=== PATIENT | male | born 1955 | race African-American/Black ===

== ENCOUNTER 2018-06-03 17:12 | Observation (INO) | payer MEDICARE, BC ==
[2018-06-03 18:06] LABS: #Basophils 0.1 thou/uL (0.0-0.2); #Monocytes 1.4 thou/uL (0.11-0.59); #Neutrophils 7.5 thou/uL (1.40-6.50); %Basophils 0.6 % (0.0-1.0); %Eosinophils 0.4 % (0.0-10.0); %Lymphocytes 9.5 % (21.0-51.0); %Monocytes 14.2 % (0.0-10.0); %Neutrophils 75.3 % (42.0-75.0); Hemoglobin 13.3 g/dL (14.0-18.0); Mean Corpuscular HGB CONC 30.9 g/dL (32.0-36.0); Mean Corpuscular Hemoglobin 27.8 pg (27.0-31.0); Mean Corpuscular Volume 89.7 fL (78.0-98.0); Mean Platelet Volume 8.2 fL (7.4-10.4); Platelet Count 286 thou/uL (130-400)
--- NOTE | 2018-06-03 18:13 | RAD ---
PORTABLE CHEST: 06/03/18 HISTORY: Cough, shortness of breath. Lungs appear clear. Heart and mediastinum unremarkable. Vasculature normal. IMPRESSION: No acute findings. POS: [facility]
[2018-06-03 18:26] LABS: ALT (SGPT) 11 U/L (8-55); AST (SGOT) 16 U/L (5-34); Alkaline Phosphatase 80 U/L (40-150); Anion Gap 18 mmol/L (10-20); BUN (Urea Nitrogen) 43 mg/dL (8.4-25.7); Bilirubin, Total 0.2 mg/dL (0.2-1.2); Calc. Creatinine Clearance 0 mL/min (70-130); Calcium 8.7 mg/dL (7.8-10.44); Carbon Dioxide 20 mmol/L (23-31); Chloride 102 mmol/L (98-107); Estimated GFR-MDRD 21; Globulin 3.5 g/dL (2.4-3.5); Glucose 425 mg/dL (80-115); Potassium 4.2 mmol/L (3.5-5.1); Protein, Total 7.5 g/dL (5.8-8.1); Sodium 136 mmol/L (136-145)
[2018-06-03 18:42] LABS: Bilirubin Negative (Negative); Blood, Urine Small (Negative); Clarity CLEAR (Clear); Glucose, Urine (Dipstick) >=1000 mg/dL (Negative); Leukocyte Negative (Negative); Nitrite Negative (Negative); Protein, Urine (Dipstick) > or equal to 300 mg/dL (Neg-Trace); Urobilinogen 0.2 mg/dL (0.2-1.0); pH, Urine 6.5 (5.0-9.0)
[2018-06-03 18:45] LABS: Bacteria/HPF None Seen HPF (None Seen); Hyaline Casts/LPF 0-3 HYALINE CAST LPF (0-3 Hyaline); Pathc Cast-AUWi Flag 0.14 (0-2.49); Squamous Epithelial 0-3 HPF (0-3); WBC/HPF 0-3 HPF (0-3)
[2018-06-03] MEDS ORDERED: Acetaminophen 500 MG TAB ONE (19:13)
[2018-06-03] MEDS ORDERED: Albuterol Sulfate 2.5 mg/3 ml Neb ONE (19:21)
[2018-06-03 19:37] LABS: CKMB 1.2 ng/mL (0-6.6)
[2018-06-03] MEDS ORDERED: Insulin Regular 300 UNITS/3 ML VIAL ONE (20:46)
[2018-06-03] MEDS ORDERED: Acetaminophen 325 MG TAB ONE (22:23)
[2018-06-03] MEDS ORDERED: Oseltamivir 75 MG CAP PO SCH (22:30)
[2018-06-03 22:48] LABS: Troponin I 0.173 ng/mL (< 0.028)
[2018-06-04] MEDS ORDERED: Acetaminophen 325 MG TAB PO PRN ×2 (00:11→23:53)
[2018-06-04] MEDS ORDERED: Ondansetron ODT 4 MG TAB SL PRN (00:11)
[2018-06-04] MEDS ORDERED: Ondansetron PF 4 MG/2 ML Vial IVP PRN (00:11)
[2018-06-04 02:29] LABS: Troponin I 0.179 ng/mL (< 0.028)
[2018-06-04 04:29] VITALS: BMI 34.8
[2018-06-04] MEDS ORDERED: Dextrose 5% in Water 1,000 ML IV PRN (06:58)
[2018-06-04] MEDS ORDERED: Insulin Regular 300 UNITS/3 ML VIAL SC PRN (06:58)
[2018-06-04] MEDS ORDERED: Dextrose 50% Abboject 50 ML SYRINGE IVP PRN (06:58)
[2018-06-04] MEDS ORDERED: Senokot S 8.6-50 MG TAB PO PRN (07:27)
[2018-06-04] MEDS ORDERED: Bisacodyl 5 MG TAB PO PRN (07:27)
[2018-06-04] MEDS: Insulin Regular 300 UNITS/3 ML VIAL SC PRN ×3 (08:15→18:34)
[2018-06-04] MEDS: Insulin Glargine 15 UNITS in Pre-Filled Syringe 1 EACH SC SCH (08:41)
[2018-06-04] MEDS: Oseltamivir 6 MG/ML ORAL SUSP PO SCH (08:42)
[2018-06-04] MEDS: NIFEdipine XL 60 MG TAB PO SCH (08:43)
[2018-06-04] MEDS: Amlodipine 10 MG TAB PO SCH (08:43)
[2018-06-04] MEDS: Carvedilol 25 MG TAB PO SCH ×2 (08:44→22:40)
[2018-06-04] MEDS: Rosuvastatin 20 MG TAB PO SCH (08:54)
[2018-06-04] MEDS: Heparin 5,000 UNITS/ML VIAL SC SCH ×3 (08:54→22:39)
[2018-06-04] MEDS ORDERED: Insulin Glargine 15 UNITS in Pre-Filled Syringe 1 EACH SC SCH ×3 (09:00→21:00)
[2018-06-04] MEDS ORDERED: Oseltamivir 75 MG CAP PO SCH (09:00)
[2018-06-04] MEDS ORDERED: Calcitriol 0.25 MCG CAP PO SCH ×2 (09:00)
[2018-06-04] MEDS ORDERED: NIFEDIPINE 60 MG PO SCH (09:00)
[2018-06-04] MEDS: Ipratropium Bromide 2.5 ml Neb NEB SCH ×2 (13:34→19:35)
[2018-06-04] MEDS ORDERED: Benzonatate 100 MG CAP PO PRN (15:34)
--- NOTE | 2018-06-04 21:15 | HP ---
CHIEF COMPLAINT: Shortness of breath. HISTORY OF PRESENT ILLNESS: The patient is a very pleasant 63-year-old male with a history of type 2 diabetes, hyperlipidemia, hypertension, who presents to the hospital with complaints of shortness of breath. The patient stated that for the past few days he has been having shortness of breath and cough. The patient stated that his shortness of breath got worse today to the point that he was unable to talk without getting very short of breath. So his brought him into the ER for further evaluation. The patient denies any chills, however, did have some fevers. No nausea, vomiting, or diarrhea. He denies any chest tightness. In the ED, the patient was found to have influenza A, so he was admitted to the hospital for further evaluation. PAST MEDICAL HISTORY: 1. Diabetes. 2. Hypertension. 3. Hyperlipidemia. 4. He has a history of heart failure. PAST SURGICAL HISTORY: He had back surgeries x3 including laminectomy and LASIK eye surgery for cataract removal. ALLERGIES: HE HAS NO KNOWN DRUG ALLERGIES. MEDICATIONS: As of the following; 1. The patient takes carvedilol 25 mg b.i.d. 2. Quinapril 80 mg daily. 3. Tizanidine one p.o. at bedtime. 4. Insulin 60 units in the morning, 42 in the night. 5. Nifedipine 60 mg daily. 6. Rosuvastatin 20 mg daily. REVIEW OF SYSTEMS: All negative except for the ones mentioned above in HPI. PHYSICAL EXAMINATION: VITAL SIGNS: Temperature 99.9, pulse 76, respiratory rate 18, 96% on room air, blood pressure 127/65. GENERAL: He is awake, alert, and oriented x3. Does not appear in any distress. HEENT: Normocephalic, atraumatic. No lymphadenopathy. Pupils are equal and reactive to light. CV: S1 and S2 present. No murmurs, rubs, or gallops. ABDOMEN: Soft and nontender. Bowel sounds are present x2. RESPIRATORY: Mild expiratory wheezing. No rhonchi or crackles heard. EXTREMITIES: No edema. Pedal pulses are present x2. NEUROVASCULAR: No focal deficits noted. SKIN: No cuts, lesions, or bruises noted. LABORATORY RESULTS: As of the following; WBC of 10.0, hemoglobin of 13.3, hematocrit of 43.1, platelets of 286. Chemistries; sodium of 136, potassium of 4.2, BUN of 43, creatinine of 3.57. Sugar was 425. His troponins are 0.094, went up to 0.173. BNP was 383. The patient's chest x-ray did not indicate any acute abnormalities. ASSESSMENT AND PLAN: The patient is a very pleasant 63-year-old male who presents to the hospital with shortness of breath. 1. Shortness of breath, most likely secondary to influenza A, which is positive. We will start the patient on some neb treatments. Continue the Tamiflu based per renal dosing. At this point, I do not think the patient requires any antibiotics. We will just continue to monitor. He does not have any white count or any chest x-ray findings. I will also go ahead and order an echocardiogram. His last stress test indicated a low EF. This was done in 2014. He had an EF of about 45%. The patient did state that he has a stress test coming up as an outpatient on the June 18. 2. Chronic kidney disease. The patient's creatinine has worsened since 2014. We will start on some gentle hydration and continue to monitor. 3. Mild elevated troponin. This could be a little bit of demand ischemia. The patient currently has no chest pain. We will continue to monitor. 4. Diabetes. We will try to control his sugars. 5. Deep venous thrombosis prophylaxis. We will put the patient on subcu heparin. Job ID: [id number]
[2018-06-05 05:50] LABS: Anion Gap 15 mmol/L (10-20); BUN (Urea Nitrogen) 49 mg/dL (8.4-25.7); Calc. Creatinine Clearance 28 mL/min (70-130); Calcium 8.3 mg/dL (7.8-10.44); Carbon Dioxide 22 mmol/L (23-31); Chloride 103 mmol/L (98-107); Estimated GFR-MDRD 19; Glucose 198 mg/dL (80-115); Potassium 3.6 mmol/L (3.5-5.1); Sodium 136 mmol/L (136-145)
[2018-06-05 06:07] LABS: Band 4 % (5-11); Eosinophils 4 % (0-10); Hemoglobin 11.6 g/dL (14.0-18.0); Lymphocytes 20 % (21-51); MDiff Complete? YES; Mean Corpuscular HGB CONC 31.5 g/dL (32.0-36.0); Mean Corpuscular Hemoglobin 28.1 pg (27.0-31.0); Mean Corpuscular Volume 89.2 fL (78.0-98.0); Mean Platelet Volume 8.5 fL (7.4-10.4); Monocytes 20 % (0-10); Neutrophil 52 % (42-75); Platelet Count 244 thou/uL (130-400); RBC Distribution Width 12.9 % (11.5-14.5); Red Blood Cell (RBC) Count 4.11 mill/uL (4.70-6.10)
[2018-06-05] MEDS: Insulin Regular 300 UNITS/3 ML VIAL SC PRN ×2 (06:14→11:27)
[2018-06-05] MEDS: Ipratropium Bromide 2.5 ml Neb NEB SCH (06:59)
[2018-06-05 07:51] VITALS: TEMP 98.3
[2018-06-05] MEDS: Insulin Glargine 15 UNITS in Pre-Filled Syringe 1 EACH SC SCH (08:55)
[2018-06-05] MEDS: Heparin 5,000 UNITS/ML VIAL SC SCH (08:56)
[2018-06-05] MEDS: Amlodipine 10 MG TAB PO SCH (08:56)
[2018-06-05] MEDS: Oseltamivir 6 MG/ML ORAL SUSP PO SCH (08:56)
[2018-06-05] MEDS: NIFEdipine XL 60 MG TAB PO SCH (08:57)
[2018-06-05] MEDS: Rosuvastatin 20 MG TAB PO SCH (08:57)
[2018-06-05] MEDS: Carvedilol 25 MG TAB PO SCH (08:57)
[2018-06-05 09:06] VITALS: BP 124/66
--- NOTE | 2018-06-05 12:31 | PDOC.PN ---
- Subjective Encounter Start Date: 06/05/18 Encounter Start Time: 10:00 -: old records requested/rev Patient seen and examined. No new complaints. No overnight events - Objective Resuscitation Status - Order Detail: 06/04/18 07:27 Resuscitation Status Routine Resuscitation Status: FULL: Full Resuscitation MAR Reviewed: Yes Vital Signs & Weight: Vital Signs (12 hours) Temp Pulse Resp BP BP BP Pulse Ox 06/05/18 08:57 64 124/66 06/05/18 08:56 64 124/66 06/05/18 07:50 98.3 F 66 18 126/63 97 06/05/18 06:59 78 16 98 06/05/18 04:00 99.9 F H 73 18 123/57 L 96 Weight Weight 229 lb 14.4 oz I&O: 06/04/18 06/05/18 06/06/18 06:59 06:59 06:59 Intake Total 1223 240 Balance 1223 240 Result Diagrams: 06/05/18 05:03 06/05/18 05:03 Additional Labs: Accuchecks 06/05/18 06/05/18 06/04/18 10:51 05:54 20:25 POC Glucose 319 H 184 H 312 H 06/04/18 06/04/18 17:01 10:46 POC Glucose 381 H 429 H EKG Reviewed by me: Yes Phys Exam - Physical Examination Constitutional: NAD HEENT: PERRLA, moist MMs, sclera anicteric Neck: no JVD, supple Respiratory: no wheezing, no rales, no rhonchi Cardiovascular: RRR, no significant murmur, no rub Gastrointestinal: soft, non-tender, no distention, positive bowel sounds Musculoskeletal: no edema, pulses present Neurological: non-focal, normal sensation, moves all 4 limbs Lymphatic: no nodes Psychiatric: normal affect, A&O x 3 Skin: no rash, normal turgor Dx/Plan (1) Elevated troponin Code(s): R74.8 - ABNORMAL LEVELS OF OTHER SERUM ENZYMES Status: Acute (2) Influenza A Code(s): J10.1 - FLU DUE TO OTH IDENT INFLUENZA VIRUS W OTH RESP MANIFEST Status: Acute (3) Chronic pain disorder Code(s): G89.4 - CHRONIC PAIN SYNDROME Status: Chronic (4) Chronic systolic heart failure, ACC/AHA stage C Code(s): I50.22 - CHRONIC SYSTOLIC (CONGESTIVE) HEART FAILURE Status: Chronic (5) HLD (hyperlipidemia) Code(s): E78.5 - HYPERLIPIDEMIA, UNSPECIFIED Status: Chronic (6) HTN (hypertension) Code(s): I10 - ESSENTIAL (PRIMARY) HYPERTENSION Status: Chronic (7) Obesity (BMI 30-39.9) Code(s): E66.9 - OBESITY, UNSPECIFIED Status: Chronic (8) Type 2 diabetes mellitus Status: Chronic - Plan cont current plan of care, plan discussed w/ family * medication reviewed as below * symptomatic treatment * stable for discharge. Review of Systems - Review of Systems ENT: negative: Ear Pain, Ear Discharge, Nose Pain, Nose Discharge, Nose Congestion, Mouth Pain, Mouth Swelling, Throat Pain, Throat Swelling, Other Respiratory: negative: Cough, Dry, Shortness of Breath, Hemoptysis, SOB with Excertion, Pleuritic Pain, Sputum, Wheezing Cardiovascular: negative: chest pain, palpitations, orthopnea, paroxysmal nocturnal dyspnea, edema, light headedness, other Gastrointestinal: negative: Nausea, Vomiting, Abdominal Pain, Diarrhea, Constipation, Melena, Hematochezia, Other Genitourinary: negative: Dysuria, Frequency, Incontinence, Hematuria, Retention , Other Musculoskeletal: negative: Neck Pain, Shoulder Pain, Arm Pain, Back Pain, Hand Pain, Leg Pain, Foot Pain, Other - Medications/Allergies Allergies/Adverse Reactions: Allergies Allergy/AdvReac Type Severity Reaction Status Date / Time No Known Allergies Allergy Verified 06/04/18 03:54
--- NOTE | 2018-06-05 13:00 | DIS ---
DATE OF ADMISSION: 06/03/2018 DATE OF DISCHARGE: 06/05/2018 PRIMARY CARE PHYSICIAN: [facility] Call Admission. DISCHARGE DISPOSITION: Home. PRIMARY DISCHARGE DIAGNOSES: 1. Influenza A. 2. Demand ischemia of myocardium. SECONDARY DISCHARGE DIAGNOSES: 1. Diabetes type 2. 2. Obesity with BMI of 35. 3. Hypertension. 4. Dyslipidemia. 5. Chronic systolic heart failure, ACC stage C. 6. Chronic pain disorder. 7. Chronic kidney disease, stage 4. PRIMARY PROCEDURE/OPERATION: None. RADIOLOGICAL INVESTIGATION: Echocardiography showed EF of 35% to 40%. His chest x-ray was unremarkable. SIGNIFICANT LABORATORY DATA: WBC 6.0, hemoglobin 11.6, platelet 244. Sodium 136, creatinine 3.97, calcium 8.3. Urinalysis; glucosuria, proteinuria. Serum ketone 0.11. DISCHARGE MEDICATIONS: 1. Calcitriol 0.25 mcg p.o. every 7 days. 2. Amlodipine 10 mg daily. 3. Coreg 25 mg b.i.d. 4. NovoLog insulin as per sliding scale. 5. Procardia XL 60 mg daily. 6. Quinapril 80 mg p.o. daily. 7. Crestor 20 mg p.o. daily. 8. Zanaflex 1 tablet p.o. daily. 9. Triamterene-hydrochlorothiazide half tablet daily. 10. Tamiflu 45 mg p.o. daily for 5 days. CONTRAINDICATION: None. CODE STATUS: Full code. INPATIENT CONSULT: None. ALLERGIES: NO KNOWN DRUG ALLERGIES. DISCHARGE PLAN: Posthospital, the patient will follow up with primary care physician in one week. At that time, the patient will have repeat lab testing done. HOSPITAL COURSE: A 63-year-old male with above-mentioned medical problem, who was admitted by Dr. Deluca, please see her H and P for further details. The patient was having flu-like symptoms and he was having cough and shortness of breath. The patient was brought to ER. He was having influenza A positive. He was treated with Tamiflu based on renal dose. He was completely euvolemic. He was not having any congestive heart failure exacerbation. His renal function is worse and that is why we discussed with the patient about low-potassium diet. The patient will follow up with primary care physician in one week. At that time, the patient will have repeat lab testing done. Overall, the patient is medically stable for discharge today and the rest of medication will be continued as per previous. The patient was seen and examined at bedside today, please see my progress note from today for further detail. Job ID: [id number]
== END 2018-06-05 11:50 | disposition home or self-care (01) ==
LOC: ERS 17:12 → 2SE 23:43
PROVIDERS: ADMIT Hospitalist; ATTEND Hospitalist
DX: J10.1 Influenza due to other identified influenza virus with other respiratory manifestations (principal); I24.8 Other forms of acute ischemic heart disease; E78.5 Hyperlipidemia, unspecified; I13.0 Hypertensive heart and chronic kidney disease with heart failure and stage 1 through stage 4 chronic kidney disease, or unspecified chronic kidney disease; E11.22 Type 2 diabetes mellitus with diabetic chronic kidney disease; N18.4 Chronic kidney disease, stage 4 (severe); I50.22 Chronic systolic (congestive) heart failure; G89.4 Chronic pain syndrome; E66.9 Obesity, unspecified; Z68.35 Body mass index [BMI] 35.0-35.9, adult; Z79.4 Long term (current) use of insulin; Z79.899 Other long term (current) drug therapy
CPT/HCPCS: 71045; 80048; 80053; 82010; 82553; 82962 ×3; 83605; 83880; 84484 ×3; 85025 ×2; 87040; 87086; 87804 ×2; 93005; 93306; 94640 ×2; 94760; 99285; G0378 ×2; 36415; 36416; 81003; 81015; J1644; J1815; J1825; J7611

== ENCOUNTER 2021-10-06 19:49 | Inpatient (IN) | payer MEDICARE, BC ==
[~2021-10-06 19:49] MED LIST: ISOVUE-370 76%-LOCM 1 ML ONE
[2021-10-06 21:04] LABS: #Eosinphils 0.1 thou/uL (0.0-0.7); #Monocytes 1.2 thou/uL (0.11-0.59); %Basophils 0.4 % (0.0-1.0); %Eosinophils 1.2 % (0.0-10.0); %Lymphocytes 8.8 % (21.0-51.0); %Monocytes 10.5 % (0.0-10.0); %Neutrophils 79.1 % (42.0-75.0); Hemoglobin 11.2 g/dL (14.0-18.0); Mean Corpuscular HGB CONC 31.3 g/dL (32.0-36.0); Mean Corpuscular Hemoglobin 31.8 pg (27.0-31.0); Mean Platelet Volume 8.2 fL (7.4-10.4); Platelet Count 341 thou/uL (130-400); RBC Distribution Width 15.2 % (11.5-14.5); Red Blood Cell (RBC) Count 3.52 mill/uL (4.70-6.10); White Blood Cell (WBC) Count 11.4 thou/uL (4.8-10.8)
[2021-10-06 21:13] LABS: ALT (SGPT) 12 U/L (8-55); AST (SGOT) 21 U/L (5-34); Albumin 3.6 g/dL (3.4-4.8); Alkaline Phosphatase 77 U/L (40-110); Anion Gap 18 mmol/L (10-20); BUN (Urea Nitrogen) 43 mg/dL (8.4-25.7); Bilirubin, Total 0.3 mg/dL (0.2-1.2); Calc. Creatinine Clearance 0 mL/min (70-130); Calcium 8.9 mg/dL (7.8-10.44); Carbon Dioxide 26 mmol/L (23-31); Chloride 97 mmol/L (98-107); Estimated GFR 10; Globulin 4.3 g/dL (2.4-3.5); Glucose 331 mg/dL (80-115); Lipase 146 U/L (8-78); Potassium 4.2 mmol/L (3.5-5.1); Protein, Total 7.9 g/dL (5.8-8.1); Sodium 137 mmol/L (136-145)
[2021-10-06 21:27] LABS: Bilirubin Negative (Negative); Blood, Urine Small (Negative); Clarity Clear (Clear); Glucose, Urine (Dipstick) 100 mg/dL (Negative); Ketone, Urine Negative (Negative); Leukocyte Negative (Negative); Nitrite Negative (Negative); Protein, Urine (Dipstick) 100 mg/dL (Neg-Trace); Urobilinogen 0.2 mg/dL (Less than 2); pH, Urine 7.5 (5.0-9.0)
[2021-10-06 21:52] LABS: RBC/HPF 0-3 HPF (0-3); Squamous Epithelial None Seen HPF (0-3); WBC/HPF None Seen HPF (0-3)
[2021-10-06] MEDS ORDERED: hydrALAZINE 20 MG/ML VIAL SLOW IVP PRN (22:25)
[2021-10-06] MEDS ORDERED: Morphine 2 MG/ML VIAL SLOW IVP PRN (22:25)
[2021-10-06] MEDS ORDERED: HumaLOG 300 UNITS/3 ML VIAL SC PRN (22:26)
[2021-10-06] MEDS ORDERED: Ondansetron PF 4 MG/2 ML Vial IVP PRN (22:26)
[2021-10-06] MEDS ORDERED: Dextrose 50% Abboject 50 ML SYRINGE SLOW IVP PRN (22:26)
[2021-10-06] MEDS ORDERED: Zolpidem Tartrate 5 MG TAB PO PRN (22:26)
[2021-10-06] MEDS ORDERED: Dextrose 5% in Water 1,000 ML IV PRN (22:26)
[2021-10-06] MEDS ORDERED: Acetaminophen 325 MG TAB PO PRN (22:26)
[2021-10-06] MEDS ORDERED: Vancomycin 1 GM in Premix Bag 1 BAG IVPB SCH ×2 (22:30→23:15)
[2021-10-06] MEDS ORDERED: Morphine 4 MG/ML VIAL ONE (22:50)
[2021-10-06] MEDS ORDERED: cefTRIAXone\\ROCEPHIN 2 GM VIAL ONE (22:50)
[2021-10-07 02:14] VITALS: BMI 37.7
[2021-10-07] MEDS: Heparin 5,000 UNITS/ML VIAL SC SCH ×3 (02:23→21:44)
[2021-10-07] MEDS ORDERED: Vancomycin Dialysis Sliding Scale (Wt > 99) FS SCH (02:45)
[2021-10-07] MEDS ORDERED: CEFEPIME IP SCH ×3 (03:00→15:45)
[2021-10-07] MEDS ORDERED: VANCOMYCIN HCL IP SCH ×3 (03:00→15:45)
[2021-10-07] MEDS ORDERED: PERITON DIALYSIS IP SCH ×3 (03:00→15:45)
[2021-10-07 03:13] LABS: BF Color Colorless; Body Fluid Source Ascites Body Fluid; Clarity Cloudy/Turbid (Clear); Tube # 1
[2021-10-07 03:14] LABS: BF RBC Count - Manual 6 /cu.mm; BF WBC/Nonhematics Ct.-Manual 12680 /cu.mm
[2021-10-07] MEDS ORDERED: Vancomycin 1 GM in Premix Bag 1 BAG IVPB SCH (03:30)
[2021-10-07 04:49] LABS: SARS-CoV-2 NAA Rapid Test Not Detected (NotDetected)
[2021-10-07 04:55] LABS: BF Segmented Neutrophils 89 %; Cell Count Non Hematic 11 %
[2021-10-07] MEDS: HumaLOG 300 UNITS/3 ML VIAL SC PRN ×3 (05:45→17:51)
[2021-10-07 06:20] LABS: #Eosinphils 0.2 thou/uL (0.0-0.7); #Lymphocytes 0.9 thou/uL (1.20-3.40); #Neutrophils 6.3 thou/uL (1.40-6.50); %Basophils 0.4 % (0.0-1.0); %Eosinophils 1.9 % (0.0-10.0); %Lymphocytes 10.1 % (21.0-51.0); %Monocytes 12.4 % (0.0-10.0); %Neutrophils 75.2 % (42.0-75.0); Hemoglobin 10.5 g/dL (14.0-18.0); Mean Corpuscular HGB CONC 33.4 g/dL (32.0-36.0); Mean Corpuscular Hemoglobin 33.5 pg (27.0-31.0); Platelet Count 308 thou/uL (130-400); RBC Distribution Width 14.8 % (11.5-14.5); Red Blood Cell (RBC) Count 3.15 mill/uL (4.70-6.10); White Blood Cell (WBC) Count 8.4 thou/uL (4.8-10.8)
[2021-10-07 06:41] LABS: ALT (SGPT) 10 U/L (8-55); AST (SGOT) 14 U/L (5-34); Albumin 3.1 g/dL (3.4-4.8); Alkaline Phosphatase 66 U/L (40-110); Anion Gap 15 mmol/L (10-20); BUN (Urea Nitrogen) 41 mg/dL (8.4-25.7); Bilirubin, Total 0.3 mg/dL (0.2-1.2); Calc. Creatinine Clearance 22 mL/min (70-130); Calcium 8.6 mg/dL (7.8-10.44); Carbon Dioxide 26 mmol/L (23-31); Chloride 100 mmol/L (98-107); Estimated GFR 11; Globulin 3.7 g/dL (2.4-3.5); Glucose 459 mg/dL (80-115); Potassium 3.8 mmol/L (3.5-5.1); Protein, Total 6.8 g/dL (5.8-8.1); Sodium 137 mmol/L (136-145)
[2021-10-07] MEDS ORDERED: Losartan 25 MG TAB PO SCH (09:00)
[2021-10-07] MEDS ORDERED: HumuLIN 70/30 (300 UNITS/3 ML VIAL) SC SCH (09:00)
[2021-10-07] MEDS ORDERED: NIFEdipine XL 90 MG TAB PO SCH (09:00)
[2021-10-07] MEDS ORDERED: Cefepime 1 GM in Sodium Chloride 0.9% 100 ML IVPB SCH (09:00)
[2021-10-07] MEDS ORDERED: Famotidine 20 MG TAB PO SCH (09:00)
[2021-10-07] MEDS: Carvedilol 6.25 MG TAB PO SCH ×2 (09:16→17:49)
[2021-10-07] MEDS: Torsemide 100 MG TAB PO SCH ×2 (09:17→14:02)
[2021-10-07] MEDS: Metolazone 5 MG TAB PO SCH (09:23)
[2021-10-07] MEDS: Aspirin 81 mg Enteric Coated Tablet PO SCH (09:23)
[2021-10-07] MEDS ORDERED: Polyethylene Glycol 3350 17 GM Packet PO PRN (10:42)
[2021-10-07] MEDS ORDERED: Bisacodyl 5 MG TAB PO PRN (10:42)
[2021-10-07 11:52] LABS: HBSAg Index 0.32 S/CO (0-0.99); Hep B Surf Ag Non-Reactive S/CO (NonReactive)
[2021-10-07] MEDS: HYDROcodone/Acetaminophen 5/325 mg Tablet PO PRN ×2 (12:07→17:49)
[2021-10-07] MEDS ORDERED: [UNRECOGNIZED DRUG - OTHER] SQ SCH (12:45)
[2021-10-07] MEDS ORDERED: INSULIN REGULAR SQ SCH (12:45)
[2021-10-07] MEDS ORDERED: INSULIN ISOPHANE SQ SCH (12:45)
[2021-10-07] MEDS ORDERED: NIFEdipine XL 30 MG TAB PO SCH (21:00)
[2021-10-07] MEDS: Latanoprost 0.005% Ophth Soln 2.5 ml Bottle EA EYE SCH (21:44)
[2021-10-07] MEDS: HumuLIN 70/30 (300 UNITS/3 ML VIAL) SC SCH (21:45)
[2021-10-07] MEDS: Polyethylene Glycol 3350 17 GM Packet PO SCH (21:58)
[2021-10-08] MEDS: HumaLOG 300 UNITS/3 ML VIAL SC PRN ×2 (05:56→11:35)
[2021-10-08] MEDS: Metolazone 5 MG TAB PO SCH (08:41)
[2021-10-08] MEDS: Carvedilol 6.25 MG TAB PO SCH ×2 (08:41→17:35)
[2021-10-08] MEDS: Aspirin 81 mg Enteric Coated Tablet PO SCH (08:41)
[2021-10-08] MEDS: NIFEdipine XL 60 MG TAB PO SCH ×2 (08:42→19:41)
[2021-10-08] MEDS: Famotidine 20 MG TAB PO SCH (08:42)
[2021-10-08] MEDS: Torsemide 100 MG TAB PO SCH ×2 (08:43→14:52)
[2021-10-08] MEDS: Polyethylene Glycol 3350 17 GM Packet PO SCH ×2 (08:43→19:42)
[2021-10-08] MEDS ORDERED: Losartan 25 MG TAB PO SCH (09:00)
[2021-10-08] MEDS ORDERED: [UNRECOGNIZED DRUG - OTHER] IP SCH (09:00)
[2021-10-08] MEDS ORDERED: HumuLIN 70/30 (300 UNITS/3 ML VIAL) SC SCH (09:00)
[2021-10-08] MEDS ORDERED: ADMIXTURE FEE IP SCH (09:00)
[2021-10-08] MEDS ORDERED: Cefepime 0.5 GM, Admixture Fee 1 EACH in Sodium Chloride 0.9% 100 ML IVPB SCH (09:00)
[2021-10-08] MEDS ORDERED: CEFEPIME IP SCH (09:00)
[2021-10-08] MEDS ORDERED: VANCOMYCIN HCL IP SCH (09:00)
[2021-10-08] MEDS: Heparin 5,000 UNITS/ML VIAL SC SCH ×2 (09:43→21:25)
[2021-10-08] MEDS: HYDROcodone/Acetaminophen 5/325 mg Tablet PO PRN ×2 (14:41→19:41)
[2021-10-08] MEDS: Latanoprost 0.005% Ophth Soln 2.5 ml Bottle EA EYE SCH (19:42)
[2021-10-08] MEDS: HumuLIN 70/30 (300 UNITS/3 ML VIAL) SC SCH (21:23)
[2021-10-09] MEDS: HYDROcodone/Acetaminophen 5/325 mg Tablet PO PRN ×2 (05:47→21:40)
[2021-10-09 05:58] LABS: Hemoglobin A1c 9.1 % (4.0-6.0)
[2021-10-09 06:18] LABS: Anion Gap 15 mmol/L (10-20); BUN (Urea Nitrogen) 41 mg/dL (8.4-25.7); Calc. Creatinine Clearance 21 mL/min (70-130); Calcium 8.8 mg/dL (7.8-10.44); Carbon Dioxide 29 mmol/L (23-31); Chloride 96 mmol/L (98-107); Estimated GFR 11; Glucose 169 mg/dL (80-115); Sodium 137 mmol/L (136-145)
[2021-10-09 06:23] LABS: Potassium 2.8 mmol/L (3.5-5.1)
[2021-10-09 06:49] LABS: Magnesium 1.5 mg/dL (1.6-2.6)
[2021-10-09 06:54] LABS: Phosphorus 4.8 mg/dL (2.3-4.7)
[2021-10-09] MEDS ORDERED: Magnesium Sulfate In Water 4 GM in Premix Bag 1 BAG IVPB SCH (07:00)
[2021-10-09] MEDS ORDERED: Potassium Chloride 20 MEQ TAB PO SCH ×2 (08:00→15:00)
[2021-10-09] MEDS: Carvedilol 6.25 MG TAB PO SCH ×2 (08:03→17:31)
[2021-10-09] MEDS: Aspirin 81 mg Enteric Coated Tablet PO SCH (08:03)
[2021-10-09] MEDS: NIFEdipine XL 60 MG TAB PO SCH ×2 (08:03→21:30)
[2021-10-09] MEDS: Torsemide 100 MG TAB PO SCH ×2 (08:04→14:10)
[2021-10-09] MEDS: Polyethylene Glycol 3350 17 GM Packet PO SCH ×2 (08:04→21:30)
[2021-10-09] MEDS: Famotidine 20 MG TAB PO SCH (08:04)
[2021-10-09] MEDS: Metolazone 5 MG TAB PO SCH (08:07)
[2021-10-09] MEDS: Heparin 5,000 UNITS/ML VIAL SC SCH ×2 (09:51→21:30)
[2021-10-09] MEDS: HumuLIN 70/30 (300 UNITS/3 ML VIAL) SC SCH ×2 (09:53→21:30)
[2021-10-09] MEDS: VANCOMYCIN HCL IP SCH (14:38)
[2021-10-09] MEDS: ADMIXTURE FEE IP SCH (14:38)
[2021-10-09] MEDS: [UNRECOGNIZED DRUG - OTHER] IP SCH (14:38)
[2021-10-09] MEDS: CEFEPIME IP SCH (14:38)
[2021-10-09 17:19] LABS: Vancomycin, Random 24.5 ug/mL (See Comment)
[2021-10-09] MEDS: Latanoprost 0.005% Ophth Soln 2.5 ml Bottle EA EYE SCH (21:30)
[2021-10-10 04:45] LABS: Hemoglobin 10.5 g/dL (14.0-18.0); Mean Corpuscular HGB CONC 32.4 g/dL (32.0-36.0); Mean Corpuscular Hemoglobin 32.6 pg (27.0-31.0); Mean Platelet Volume 7.5 fL (7.4-10.4); Platelet Count 291 thou/uL (130-400); RBC Distribution Width 14.9 % (11.5-14.5); Red Blood Cell (RBC) Count 3.21 mill/uL (4.70-6.10); White Blood Cell (WBC) Count 8.2 thou/uL (4.8-10.8)
[2021-10-10 05:02] LABS: Anion Gap 16 mmol/L (10-20); BUN (Urea Nitrogen) 41 mg/dL (8.4-25.7); Calc. Creatinine Clearance 19 mL/min (70-130); Calcium 8.4 mg/dL (7.8-10.44); Carbon Dioxide 29 mmol/L (23-31); Chloride 96 mmol/L (98-107); Estimated GFR 10; Glucose 247 mg/dL (80-115); Sodium 138 mmol/L (136-145); Vancomycin, Trough 26.8 ug/mL
[2021-10-10 05:10] LABS: Potassium 2.9 mmol/L (3.5-5.1)
[2021-10-10] MEDS: HumaLOG 300 UNITS/3 ML VIAL SC PRN (06:26)
[2021-10-10] MEDS ORDERED: Electrolyte Replacement Protocol FS PRN (07:00)
[2021-10-10 07:07] LABS: Magnesium 2.1 mg/dL (1.6-2.6)
[2021-10-10] MEDS: ADMIXTURE FEE IP SCH (07:51)
[2021-10-10] MEDS: VANCOMYCIN HCL IP SCH (07:51)
[2021-10-10] MEDS: CEFEPIME IP SCH (07:51)
[2021-10-10] MEDS: [UNRECOGNIZED DRUG - OTHER] IP SCH (07:51)
[2021-10-10] MEDS ORDERED: Magnesium 2 GM/50 ML(in water) 2 GM in Premix Bag 1 BAG IVPB SCH (08:00)
[2021-10-10] MEDS: NIFEdipine XL 60 MG TAB PO SCH (08:55)
[2021-10-10] MEDS: Famotidine 20 MG TAB PO SCH (08:55)
[2021-10-10] MEDS: Polyethylene Glycol 3350 17 GM Packet PO SCH (08:55)
[2021-10-10] MEDS: Aspirin 81 mg Enteric Coated Tablet PO SCH (08:56)
[2021-10-10] MEDS: Metolazone 5 MG TAB PO SCH (08:56)
[2021-10-10] MEDS: Carvedilol 6.25 MG TAB PO SCH ×2 (08:56→16:02)
[2021-10-10] MEDS ORDERED: Cefepime 1 GM in Sodium Chloride 0.9% 100 ML IVPB SCH (09:00)
[2021-10-10] MEDS: Potassium Chloride 20 MEQ TAB PO SCH ×3 (09:01→16:02)
[2021-10-10] MEDS: Heparin 5,000 UNITS/ML VIAL SC SCH (09:02)
[2021-10-10] MEDS: Torsemide 100 MG TAB PO SCH ×2 (10:26→12:21)
[2021-10-10] MEDS: HumuLIN 70/30 (300 UNITS/3 ML VIAL) SC SCH (10:27)
[2021-10-10 15:57] VITALS: BP 122/71; TEMP 98.4
[2021-10-11] MEDS ORDERED: Magnesium Oxide 400 MG TAB PO SCH (09:00)
== END 2021-10-10 16:15 | disposition home or self-care (01) | DRG 919 ==
LOC: ERS 19:49 → SURG A 22:26
PROVIDERS: ADMIT Internal Medicine; ATTEND Internal Medicine
PROC: 3E1M39Z Irrigation of Peritoneal Cavity using Dialysate, Percutaneous Approach (ICD-10-PCS; principal; 2021-10-07)
DX: T85.71XA Infection and inflammatory reaction due to peritoneal dialysis catheter, initial encounter (principal); K65.0 Generalized (acute) peritonitis; N18.6 End stage renal disease; I12.0 Hypertensive chronic kidney disease with stage 5 chronic kidney disease or end stage renal disease; N25.81 Secondary hyperparathyroidism of renal origin; Z20.822 Contact with and (suspected) exposure to COVID-19; E87.6 Hypokalemia; I10 Essential (primary) hypertension; E11.65 Type 2 diabetes mellitus with hyperglycemia; K59.09 Other constipation; E11.22 Type 2 diabetes mellitus with diabetic chronic kidney disease; E78.5 Hyperlipidemia, unspecified; E78.2 Mixed hyperlipidemia; E66.9 Obesity, unspecified; D63.1 Anemia in chronic kidney disease; M48.14 Ankylosing hyperostosis [Forestier], thoracic region; M48.16 Ankylosing hyperostosis [Forestier], lumbar region; E83.42 Hypomagnesemia; Y83.1 Surgical operation with implant of artificial internal device as the cause of abnormal reaction of the patient, or of later complication, without mention of misadventure at the time of the procedure; Z99.2 Dependence on renal dialysis; Z79.899 Other long term (current) drug therapy; Z79.4 Long term (current) use of insulin; Z98.890 Other specified postprocedural states; Z68.37 Body mass index [BMI] 37.0-37.9, adult
CPT/HCPCS: 36415; 36416; 74177; 80048; 80053; 80202; 81003; 81015; 83036; 83605; 83690; 83735; 84100; 85025; 85027; 85060; 87040; 87070; 87077; 87086; 87205; 87340; 89051; 90945; G0257; J0692; J0696; J1644; J1815; J2270; J3370; J3475; J3490; Q9966; U0002

== ENCOUNTER 2023-04-02 16:38 | Emergency (ER) | payer MEDICARE, BC ==
[2023-04-02 18:11] LABS: #Basophils 0.1 thou/uL (0.0-0.2); #Eosinphils 0.4 thou/uL (0.0-0.7); #Monocytes 1.4 thou/uL (0.11-0.59); #Neutrophils 9.7 thou/uL (1.40-6.50); %Basophils 0.6 % (0.0-1.0); %Eosinophils 3.1 % (0.0-10.0); %Lymphocytes 7.7 % (21.0-51.0); %Monocytes 10.9 % (0.0-10.0); %Neutrophils 77.2 % (42.0-75.0); Hematocrit 32.1 % (42.0-52.0); Hemoglobin 10.8 g/dL (14.0-18.0); Mean Corpuscular HGB CONC 33.6 g/dL (32.0-36.0); Mean Corpuscular Volume 95.3 fl (78.0-98.0); Mean Platelet Volume 10.7 fL (7.4-10.4); Platelet Count 316 10x3/uL (130-400); RBC Distribution Width 15.2 % (11.5-14.5); Red Blood Cell (RBC) Count 3.37 mill/uL (4.70-6.10); White Blood Cell (WBC) Count 12.6 10x3/uL (4.8-10.8)
[2023-04-02 18:36] LABS: Troponin I 0.145 ng/mL (< 0.028)
[2023-04-02 18:56] LABS: SARS-CoV-2 NAA Rapid Test Not Detected (NotDetected)
[2023-04-02 18:58] LABS: ALT (SGPT) 26 U/L (8-55); AST (SGOT) 46 U/L (5-34); Albumin 3.5 g/dL (3.4-4.8); Alkaline Phosphatase 71 U/L (40-110); Anion Gap 18 mmol/L (10-20); BUN (Urea Nitrogen) 52 mg/dL (8.4-25.7); Bilirubin, Total 0.3 mg/dL (0.2-1.2); Calc. Creatinine Clearance 0 mL/min (70-130); Calcium 8.5 mg/dL (7.8-10.44); Carbon Dioxide 26 mmol/L (23-31); Chloride 99 mmol/L (98-107); Estimated GFR 8; Globulin 3.2 g/dL (2.4-3.5); Glucose 67 mg/dL (80-115); Potassium 3.2 mmol/L (3.5-5.1); Protein, Total 6.7 g/dL (5.8-8.1); Sodium 140 mmol/L (136-145)
[2023-04-02] MEDS ORDERED: Ipratropium/Albuterol 3 ML NEB ONE (21:02)
[2023-04-02 21:03] LABS: Troponin I 0.156 ng/mL (< 0.028)
== END 2023-04-02 22:50 | disposition home or self-care (01) ==
LOC: ERS 16:38
DX: J18.9 Pneumonia, unspecified organism (principal); I13.2 Hypertensive heart and chronic kidney disease with heart failure and with stage 5 chronic kidney disease, or end stage renal disease; I50.9 Heart failure, unspecified; N18.6 End stage renal disease; E11.22 Type 2 diabetes mellitus with diabetic chronic kidney disease; E78.00 Pure hypercholesterolemia, unspecified; Z99.2 Dependence on renal dialysis; Z79.82 Long term (current) use of aspirin; Z79.4 Long term (current) use of insulin; Z79.899 Other long term (current) drug therapy
CPT/HCPCS: 0240U; 71046; 80053; 83605; 83880; 84484 ×2; 85025; 87040; 93005; 99285; 36415; J7620

== ENCOUNTER 2023-04-22 13:54 | Inpatient (IN) | payer MEDICARE, BC ==
[~2023-04-22 13:54] MED LIST changes: +Heparin 10,000 UNITS/ 10 ML VIAL ONE; -ISOVUE-370 76%-LOCM 1 ML ONE
[2023-04-22 16:25] LABS: #Basophils 0.1 thou/uL (0.0-0.2); #Eosinphils 0.4 thou/uL (0.0-0.7); #Monocytes 1.4 thou/uL (0.11-0.59); #Neutrophils 10.7 thou/uL (1.40-6.50); %Basophils 0.5 % (0.0-1.0); %Eosinophils 2.9 % (0.0-10.0); %Lymphocytes 8.1 % (21.0-51.0); %Monocytes 10.3 % (0.0-10.0); %Neutrophils 77.7 % (42.0-75.0); Hematocrit 32.5 % (42.0-52.0); Hemoglobin 10.5 g/dL (14.0-18.0); Mean Corpuscular HGB CONC 32.3 g/dL (32.0-36.0); Mean Corpuscular Hemoglobin 31.8 pg (27.0-31.0); Mean Corpuscular Volume 98.5 fl (78.0-98.0); Mean Platelet Volume 10.3 fL (7.4-10.4); Platelet Count 335 10x3/uL (130-400); RBC Distribution Width 15.5 % (11.5-14.5); White Blood Cell (WBC) Count 13.7 10x3/uL (4.8-10.8)
[2023-04-22 16:51] LABS: ALT (SGPT) Less than 7 U/L (8-55); AST (SGOT) 11 U/L (5-34); Albumin 3.6 g/dL (3.4-4.8); Alkaline Phosphatase 68 U/L (40-110); Anion Gap 14 mmol/L (10-20); BUN (Urea Nitrogen) 46 mg/dL (8.4-25.7); Bilirubin, Total 0.3 mg/dL (0.2-1.2); Calc. Creatinine Clearance 0 mL/min (70-130); Calcium 8.7 mg/dL (7.8-10.44); Carbon Dioxide 31 mmol/L (23-31); Chloride 100 mmol/L (98-107); Estimated GFR 8; Globulin 3.7 g/dL (2.4-3.5); Glucose 143 mg/dL (80-115); Lipase 178 U/L (8-78); Potassium 3.4 mmol/L (3.5-5.1); Protein, Total 7.3 g/dL (5.8-8.1); Sodium 142 mmol/L (136-145); Troponin I 0.129 ng/mL (< 0.028)
[2023-04-22 18:54] LABS: SARS-CoV-2 NAA Rapid Test Not Detected (NotDetected)
[2023-04-22 20:39] LABS: Troponin I 0.123 ng/mL (< 0.028)
[2023-04-22] MEDS ORDERED: HumaLOG 300 UNITS/3 ML VIAL SC PRN (20:43)
[2023-04-22] MEDS ORDERED: guaiFENesin 200 MG TAB PO PRN (20:43)
[2023-04-22] MEDS ORDERED: Glucagon 1 MG/ML KIT IM PRN (20:43)
[2023-04-22] MEDS ORDERED: Dextrose 50% Abboject 50 ML SYRINGE SLOW IVP PRN (20:43)
[2023-04-22] MEDS ORDERED: Dextrose 5% in Water 1,000 ML IV PRN (20:43)
[2023-04-22] MEDS ORDERED: Potassium Chloride 20 MEQ TAB PO SCH (20:45)
[2023-04-22] MEDS ORDERED: Metolazone 5 MG TAB PO SCH (21:15)
[2023-04-22] MEDS: Heparin 5,000 UNITS/ML VIAL SC SCH (23:37)
[2023-04-22] MEDS: Aspirin 81 mg Enteric Coated Tablet PO SCH (23:37)
[2023-04-22] MEDS: Gabapentin 300 MG CAP PO SCH (23:38)
[2023-04-23 00:04] LABS: Troponin I 0.109 ng/mL (< 0.028)
[2023-04-23] MEDS: Doxycycline 100 MG in Sodium Chloride 0.9% 100 ML IVPB SCH ×2 (00:16→12:32)
[2023-04-23 00:20] LABS: HBSAB Concentration Less than 8.00 mIU/mL; HBSAg Index 0.18 S/CO (0-0.99); Hep B Core Total Ab Non-Reactive (NonReactive); Hep B Core Total Index 0.07 S/CO (0-0.79); Hep B Surf AB Non-Reactive (NonReactive); Hep B Surf Ag Non-Reactive S/CO (NonReactive); Hep C IgG Ab Non-Reactive S/CO (NonReactive); Hep C Index 0.05 S/CO (0-0.79)
[2023-04-23 00:54] VITALS: BMI 36.8
[2023-04-23] MEDS: Ipratropium/Albuterol 3 ML NEB NEB SCH ×7 (02:25→22:04)
[2023-04-23 05:28] LABS: #Basophils 0.1 thou/uL (0.0-0.2); #Eosinphils 0.3 thou/uL (0.0-0.7); #Neutrophils 10.6 thou/uL (1.40-6.50); %Basophils 0.6 % (0.0-1.0); %Eosinophils 2.4 % (0.0-10.0); %Lymphocytes 7.7 % (21.0-51.0); %Monocytes 7.9 % (0.0-10.0); Hematocrit 31.1 % (42.0-52.0); Hemoglobin 9.8 g/dL (14.0-18.0); Mean Corpuscular HGB CONC 31.5 g/dL (32.0-36.0); Mean Corpuscular Hemoglobin 30.7 pg (27.0-31.0); Mean Corpuscular Volume 97.5 fl (78.0-98.0); Mean Platelet Volume 10.4 fL (7.4-10.4); Platelet Count 315 10x3/uL (130-400); RBC Distribution Width 15.2 % (11.5-14.5); Red Blood Cell (RBC) Count 3.19 mill/uL (4.70-6.10); White Blood Cell (WBC) Count 13.1 10x3/uL (4.8-10.8)
[2023-04-23 05:53] LABS: ALT (SGPT) 7 U/L (8-55); AST (SGOT) 9 U/L (5-34); Albumin 3.2 g/dL (3.4-4.8); Alkaline Phosphatase 64 U/L (40-110); Anion Gap 15 mmol/L (10-20); BUN (Urea Nitrogen) 48 mg/dL (8.4-25.7); Bilirubin, Total 0.4 mg/dL (0.2-1.2); Calc. Creatinine Clearance 16 mL/min (70-130); Calcium 8.3 mg/dL (7.8-10.44); Carbon Dioxide 26 mmol/L (23-31); Chloride 102 mmol/L (98-107); Estimated GFR 8; Globulin 3.4 g/dL (2.4-3.5); Glucose 321 mg/dL (80-115); Potassium 3.4 mmol/L (3.5-5.1); Protein, Total 6.6 g/dL (5.8-8.1); Sodium 140 mmol/L (136-145)
[2023-04-23] MEDS: HumaLOG 300 UNITS/3 ML VIAL SC PRN ×2 (05:54→17:25)
[2023-04-23] MEDS ORDERED: Sterile Water 10 ML VIAL IVP SCH (08:00)
[2023-04-23] MEDS ORDERED: Activase 2 MG VIAL CATH SCH (08:00)
[2023-04-23] MEDS ORDERED: [UNRECOGNIZED DRUG - OTHER] FS SCH (08:15)
[2023-04-23] MEDS ORDERED: ADMIXTURE FEE FS SCH ×2 (08:15→15:30)
[2023-04-23] MEDS ORDERED: HEPARIN FS SCH ×2 (08:15→15:30)
[2023-04-23] MEDS ORDERED: Carvedilol 3.125 MG TAB PO SCH (09:00)
[2023-04-23] MEDS: Calcitriol 0.25 MCG CAP PO SCH (10:35)
[2023-04-23] MEDS: Carvedilol 6.25 MG TAB PO SCH ×2 (10:36→20:51)
[2023-04-23] MEDS: Gabapentin 300 MG CAP PO SCH ×3 (10:36→20:51)
[2023-04-23] MEDS: cefTRIAXone\\ROCEPHIN 1 GM in Sodium Chloride 0.9% 100 ML IVPB SCH (10:36)
[2023-04-23] MEDS: Torsemide 100 MG TAB PO SCH (10:37)
[2023-04-23] MEDS: Metolazone 2.5 MG TAB PO SCH (10:37)
[2023-04-23] MEDS: NIFEdipine XL 60 MG ER.TAB PO SCH ×2 (10:37→20:51)
[2023-04-23] MEDS: Heparin 5,000 UNITS/ML VIAL SC SCH ×3 (10:40→20:51)
[2023-04-23] MEDS: HumuLIN 70/30 100 Unit/ml 10 ml Vial SC SCH (10:53)
[2023-04-23] MEDS: HumaLOG 300 UNITS/3 ML VIAL SC SCH ×2 (12:00→17:20)
[2023-04-23] MEDS ORDERED: [UNRECOGNIZED DRUG - OTHER] FS SCH (15:30)
[2023-04-23] MEDS ORDERED: Lactulose 20 GM (30 mL) UDCUP PO SCH (17:45)
[2023-04-23] MEDS ORDERED: Polyethylene Glycol 3350 17 GM Packet PO SCH (17:45)
[2023-04-23] MEDS: Aspirin 81 mg Enteric Coated Tablet PO SCH (20:51)
[2023-04-23] MEDS: Latanoprost 0.005% Ophth Soln 2.5 ml Bottle EA EYE SCH (20:52)
[2023-04-23] MEDS ORDERED: HumuLIN 70/30 100 Unit/ml 10 ml Vial SC SCH (21:00)
[2023-04-24] MEDS: Doxycycline 100 MG in Sodium Chloride 0.9% 100 ML IVPB SCH ×2 (00:44→11:00)
[2023-04-24] MEDS: Ipratropium/Albuterol 3 ML NEB NEB SCH ×6 (02:11→23:44)
[2023-04-24 06:12] LABS: #Basophils 0.1 thou/uL (0.0-0.2); #Eosinphils 0.6 thou/uL (0.0-0.7); #Monocytes 1.1 thou/uL (0.11-0.59); #Neutrophils 8.3 thou/uL (1.40-6.50); %Basophils 0.6 % (0.0-1.0); %Eosinophils 5.1 % (0.0-10.0); %Lymphocytes 9.6 % (21.0-51.0); %Monocytes 9.5 % (0.0-10.0); %Neutrophils 74.8 % (42.0-75.0); Hematocrit 31.8 % (42.0-52.0); Mean Corpuscular HGB CONC 31.4 g/dL (32.0-36.0); Mean Corpuscular Hemoglobin 30.9 pg (27.0-31.0); Mean Corpuscular Volume 98.1 fl (78.0-98.0); Mean Platelet Volume 10.9 fL (7.4-10.4); Platelet Count 319 10x3/uL (130-400); RBC Distribution Width 15.4 % (11.5-14.5); Red Blood Cell (RBC) Count 3.24 mill/uL (4.70-6.10)
[2023-04-24 06:46] LABS: Albumin 3.3 g/dL (3.4-4.8); Anion Gap 18 mmol/L (10-20); BUN (Urea Nitrogen) 50 mg/dL (8.4-25.7); Calc. Creatinine Clearance 15 mL/min (70-130); Calcium 8.5 mg/dL (7.8-10.44); Carbon Dioxide 26 mmol/L (23-31); Chloride 102 mmol/L (98-107); Estimated GFR 8; Glucose 314 mg/dL (80-115); Phosphorus 5.4 mg/dL (2.3-4.7); Potassium 3.1 mmol/L (3.5-5.1); Sodium 143 mmol/L (136-145)
[2023-04-24] MEDS: cefTRIAXone\\ROCEPHIN 1 GM in Sodium Chloride 0.9% 100 ML IVPB SCH (09:50)
[2023-04-24] MEDS: Potassium Chloride 20 MEQ TAB PO SCH ×2 (09:50→13:56)
[2023-04-24] MEDS: Calcitriol 0.25 MCG CAP PO SCH (09:50)
[2023-04-24] MEDS: HumaLOG 300 UNITS/3 ML VIAL SC SCH ×3 (09:50→17:00)
[2023-04-24] MEDS: Heparin 5,000 UNITS/ML VIAL SC SCH ×3 (09:51→20:56)
[2023-04-24] MEDS: Gabapentin 300 MG CAP PO SCH ×3 (09:51→20:55)
[2023-04-24] MEDS: Carvedilol 6.25 MG TAB PO SCH ×2 (09:51→20:55)
[2023-04-24] MEDS: HumuLIN 70/30 100 Unit/ml 10 ml Vial SC SCH (09:52)
[2023-04-24] MEDS: Lactulose 20 GM (30 mL) UDCUP PO SCH (09:52)
[2023-04-24] MEDS: Metolazone 2.5 MG TAB PO SCH (09:52)
[2023-04-24] MEDS: Spironolactone 25 MG TAB PO SCH (09:53)
[2023-04-24] MEDS: Torsemide 100 MG TAB PO SCH (09:53)
[2023-04-24] MEDS: Polyethylene Glycol 3350 17 GM Packet PO SCH (09:53)
[2023-04-24] MEDS: NIFEdipine XL 60 MG ER.TAB PO SCH ×2 (09:53→20:57)
[2023-04-24] MEDS ORDERED: glipiZIDE 5 MG TAB PO SCH (10:15)
[2023-04-24] MEDS: Aspirin 81 mg Enteric Coated Tablet PO SCH (20:55)
[2023-04-24] MEDS: Latanoprost 0.005% Ophth Soln 2.5 ml Bottle EA EYE SCH (20:56)
[2023-04-24] MEDS: Isosorbide Dinitrate 20 MG TAB PO SCH (20:56)
[2023-04-25 04:00] LABS: #Basophils 0.1 thou/uL (0.0-0.2); #Eosinphils 0.8 thou/uL (0.0-0.7); #Monocytes 1.1 thou/uL (0.11-0.59); #Neutrophils 7.9 thou/uL (1.40-6.50); %Basophils 0.9 % (0.0-1.0); %Lymphocytes 10.3 % (21.0-51.0); %Monocytes 9.9 % (0.0-10.0); %Neutrophils 71.5 % (42.0-75.0); Hematocrit 31.7 % (42.0-52.0); Hemoglobin 10.3 g/dL (14.0-18.0); Mean Corpuscular HGB CONC 32.5 g/dL (32.0-36.0); Mean Corpuscular Volume 98.4 fl (78.0-98.0); Mean Platelet Volume 10.6 fL (7.4-10.4); Platelet Count 318 10x3/uL (130-400); RBC Distribution Width 15.3 % (11.5-14.5); Red Blood Cell (RBC) Count 3.22 mill/uL (4.70-6.10); White Blood Cell (WBC) Count 11.1 10x3/uL (4.8-10.8)
[2023-04-25 04:57] LABS: Anion Gap 16 mmol/L (10-20); BUN (Urea Nitrogen) 54 mg/dL (8.4-25.7); Calc. Creatinine Clearance 15 mL/min (70-130); Carbon Dioxide 27 mmol/L (23-31); Chloride 103 mmol/L (98-107); Estimated GFR 7; Glucose 210 mg/dL (80-115); Potassium 3.3 mmol/L (3.5-5.1); Sodium 143 mmol/L (136-145)
[2023-04-25] MEDS ORDERED: Potassium Chloride 20 MEQ TAB PO SCH (07:00)
[2023-04-25] MEDS: Ipratropium/Albuterol 3 ML NEB NEB SCH ×2 (07:04→13:55)
[2023-04-25] MEDS ORDERED: glipiZIDE 10 MG TAB PO SCH (07:30)
[2023-04-25] MEDS ORDERED: glipiZIDE 5 MG TAB PO SCH (07:30)
[2023-04-25] MEDS: Spironolactone 25 MG TAB PO SCH (08:37)
[2023-04-25] MEDS: Calcitriol 0.25 MCG CAP PO SCH (08:43)
[2023-04-25] MEDS: Carvedilol 6.25 MG TAB PO SCH (08:43)
[2023-04-25] MEDS: HumaLOG 300 UNITS/3 ML VIAL SC SCH ×2 (08:43→13:25)
[2023-04-25] MEDS: HumuLIN 70/30 100 Unit/ml 10 ml Vial SC SCH (08:44)
[2023-04-25] MEDS: Heparin 5,000 UNITS/ML VIAL SC SCH ×2 (08:44→14:43)
[2023-04-25] MEDS: Gabapentin 300 MG CAP PO SCH ×2 (08:44→14:43)
[2023-04-25] MEDS: Lactulose 20 GM (30 mL) UDCUP PO SCH (08:45)
[2023-04-25] MEDS: Isosorbide Dinitrate 20 MG TAB PO SCH (08:45)
[2023-04-25] MEDS: NIFEdipine XL 60 MG ER.TAB PO SCH (08:46)
[2023-04-25] MEDS: Metolazone 2.5 MG TAB PO SCH (08:46)
[2023-04-25] MEDS: Polyethylene Glycol 3350 17 GM Packet PO SCH (08:46)
[2023-04-25] MEDS: Torsemide 100 MG TAB PO SCH (08:47)
[2023-04-25] MEDS ORDERED: Spironolactone 100 MG TAB PO SCH (09:00)
[2023-04-25] MEDS ORDERED: Sacubitril 24MG/Valsartan 26 MG TAB PO SCH (09:00)
[2023-04-25 16:54] VITALS: BP 130/63; TEMP 97.1
[2023-04-26] MEDS ORDERED: Amiodarone 200 MG TAB PO SCH (09:00)
== END 2023-04-25 18:53 | disposition home or self-care (01) | DRG 919 ==
LOC: ERS 13:54 → 2SW 18:57 → OBSVTOIN 04-23 14:39
PROVIDERS: ADMIT Internal Medicine; ATTEND Student in an Organized Health Care Education/Training Program
DX: T85.611A Breakdown (mechanical) of intraperitoneal dialysis catheter, initial encounter (principal); I50.23 Acute on chronic systolic (congestive) heart failure; N18.6 End stage renal disease; I13.2 Hypertensive heart and chronic kidney disease with heart failure and with stage 5 chronic kidney disease, or end stage renal disease; N25.81 Secondary hyperparathyroidism of renal origin; I42.0 Dilated cardiomyopathy; Z11.52 Encounter for screening for COVID-19; E11.22 Type 2 diabetes mellitus with diabetic chronic kidney disease; Z79.4 Long term (current) use of insulin; Z79.899 Other long term (current) drug therapy; Z98.890 Other specified postprocedural states; E66.9 Obesity, unspecified; Z68.36 Body mass index [BMI] 36.0-36.9, adult; D63.1 Anemia in chronic kidney disease; Z79.01 Long term (current) use of anticoagulants; E11.65 Type 2 diabetes mellitus with hyperglycemia; E78.00 Pure hypercholesterolemia, unspecified; K59.09 Other constipation; E87.6 Hypokalemia; I44.7 Left bundle-branch block, unspecified
CPT/HCPCS: 0439T; 36415; 36416; 71046; 71250; 76705; 80048; 80053; 80069; 83690; 83735; 83880; 84145; 84484; 85025; 86704; 87070; 87205; 90945; 93005; 93306; 94640; 96372; 96374; 96375; 96376; G0257; G0378; J0696; J1644; J1815; J3490; J7620

== ENCOUNTER 2023-09-15 18:11 | Inpatient (IN) | payer MEDICARE, BC ==
[~2023-09-15 18:11] MED LIST changes: -Heparin 10,000 UNITS/ 10 ML VIAL ONE; +Iopamidol-370 76% 500 ML MDV (1 ML CHARGE) ONE
[2023-09-15] MEDS ORDERED: Morphine 4 MG/ML VIAL ONE (21:29)
[2023-09-15 21:31] LABS: #Basophils 0.07 10x3/uL (0.0-0.2); %Basophils 0.5 % (0.0-1.0); %Eosinophils 2.7 % (0.0-10.0); %Lymphocytes 9.9 % (21.0-51.0); %Monocytes 12.2 % (0.0-10.0); %Neutrophils 73.7 % (42.0-75.0); Hematocrit 27.2 % (42.0-52.0); Mean Corpuscular HGB CONC 33.1 g/dL (32.0-36.0); Mean Corpuscular Hemoglobin 33.5 pg (27.0-31.0); Mean Corpuscular Volume 101.1 fL (78.0-98.0); Mean Platelet Volume 9.9 fL (7.4-10.4); Platelet Count 301 10x3/uL (130-400); RBC Distribution Width 13.8 % (11.5-14.5); Red Blood Cell (RBC) Count 2.69 mill/uL (4.70-6.10)
[2023-09-15 21:53] LABS: ALT (SGPT) 10 U/L (8-55); AST (SGOT) 21 U/L (5-34); Albumin 2.8 g/dL (3.4-4.8); Alkaline Phosphatase 65 U/L (40-110); Anion Gap 18 mmol/L (10-20); BUN (Urea Nitrogen) 54 mg/dL (8.4-25.7); Bilirubin, Total 0.3 mg/dL (0.2-1.2); Calc. Creatinine Clearance 0 mL/min (70-130); Calcium 9.9 mg/dL (7.8-10.44); Carbon Dioxide 24 mmol/L (23-31); Chloride 92 mmol/L (98-107); Estimated GFR 6; Globulin 4.2 g/dL (2.4-3.5); Glucose 255 mg/dL (80-115); Potassium 3.5 mmol/L (3.5-5.1); Sodium 130 mmol/L (136-145)
[2023-09-15 22:10] LABS: Critical Call Chem Troponin I NUR.DM13 @2208
[2023-09-15] MEDS ORDERED: HYDROmorphone 0.5 MG/0.5 ML SYRINGE ONE (22:43)
[2023-09-15] MEDS ORDERED: Aspirin Chewable 81 MG TAB ONE (22:43)
[2023-09-16] MEDS ORDERED: Glucagon 1 MG/ML KIT IM PRN (01:59)
[2023-09-16] MEDS ORDERED: Dextrose 50% Abboject 50 ML SYRINGE SLOW IVP PRN ×2 (01:59→11:00)
[2023-09-16] MEDS ORDERED: Dextrose 5% in Water 1,000 ML IV PRN (01:59)
[2023-09-16 02:29] LABS: Critical Call Chem Troponin I RESULT DECREASING; Troponin I 1.324 ng/mL (< 0.028)
[2023-09-16] MEDS: Carvedilol 6.25 MG TAB PO SCH ×2 (02:56→04:23)
[2023-09-16] MEDS: Sacubitril 24MG/Valsartan 26 MG TAB PO SCH ×3 (02:57→22:40)
[2023-09-16] MEDS ORDERED: Carvedilol 6.25 MG TAB ONE ×3 (03:39→17:41)
[2023-09-16] MEDS ORDERED: Gabapentin 300 MG CAP ONE (03:40)
[2023-09-16] MEDS ORDERED: Sacubitril 49 MG/Valsartan 51 MG TABLET ONE (03:43)
[2023-09-16] MEDS: Gabapentin 300 MG CAP PO SCH ×2 (04:23→22:39)
[2023-09-16 04:51] LABS: #Basophils 0.08 10x3/uL (0.0-0.2); %Basophils 0.6 % (0.0-1.0); %Eosinophils 2.5 % (0.0-10.0); %Lymphocytes 7.3 % (21.0-51.0); %Monocytes 11.5 % (0.0-10.0); %Neutrophils 77.4 % (42.0-75.0); Hematocrit 19.1 % (42.0-52.0); Hemoglobin 6.4 g/dL (14.0-18.0); Mean Corpuscular HGB CONC 33.5 g/dL (32.0-36.0); Mean Corpuscular Hemoglobin 33.9 pg (27.0-31.0); Mean Corpuscular Volume 101.1 fL (78.0-98.0); Mean Platelet Volume 10.1 fL (7.4-10.4); Platelet Count 341 10x3/uL (130-400); RBC Distribution Width 13.8 % (11.5-14.5); Red Blood Cell (RBC) Count 1.89 mill/uL (4.70-6.10)
[2023-09-16 05:12] LABS: Magnesium 1.4 mg/dL (1.6-2.6)
[2023-09-16 05:14] LABS: ALT (SGPT) 8 U/L (8-55); AST (SGOT) 20 U/L (5-34); Albumin 2.7 g/dL (3.4-4.8); Alkaline Phosphatase 63 U/L (40-110); Anion Gap 19 mmol/L (10-20); BUN (Urea Nitrogen) 53 mg/dL (8.4-25.7); Bilirubin, Total 0.4 mg/dL (0.2-1.2); Calc. Creatinine Clearance 12 mL/min (70-130); Calcium 9.6 mg/dL (7.8-10.44); Carbon Dioxide 24 mmol/L (23-31); Chloride 90 mmol/L (98-107); Estimated GFR 6; Glucose 440 mg/dL (80-115); Potassium 3.4 mmol/L (3.5-5.1); Protein, Total 6.7 g/dL (5.8-8.1); Sodium 130 mmol/L (136-145)
[2023-09-16 05:25] LABS: Hep B Core Total Index 0.08 S/CO (0-0.79); Hep C Index 0.11 S/CO (0-0.79)
[2023-09-16] MEDS ORDERED: HumaLOG 300 UNITS/3 ML VIAL ONE (05:50)
[2023-09-16] MEDS: HumaLOG 300 UNITS/3 ML VIAL SC PRN ×2 (05:56→20:26)
[2023-09-16 06:07] LABS: HBSAB Concentration 3352.66 mIU/mL; Hep B Surf AB REACTIVE (NonReactive)
[2023-09-16 06:14] LABS: HBsAg Index 0.31 S/CO (0-0.99); Hep B Core Total Ab NONREACTIVE (NonReactive); Hep B Surf Ag NONREACTIVE S/CO (NonReactive); Hep C IgG Ab NONREACTIVE S/CO (NonReactive)
[2023-09-16] MEDS ORDERED: Lidocaine 4% Patch TD SCH (07:00)
[2023-09-16] MEDS ORDERED: Albumin 25% 100 ML ONE ×2 (07:25→12:49)
[2023-09-16] MEDS: Insulin NPH Human Isophane 100 UNITS/ML (10 ML VIAL) SC SCH (07:53)
[2023-09-16] MEDS: Lidocaine 4% Patch TD SCH (07:55)
[2023-09-16] MEDS: Albumin 25% 25 GM (100 mL) BOT IVPB SCH ×2 (07:55→13:01)
[2023-09-16 08:16] LABS: Hemoglobin 8.8 g/dL (14.0-18.0)
[2023-09-16 08:57] LABS: Glucose POC Confirmation 518 mg/dL (83-110)
[2023-09-16] MEDS: Magnesium Sulfate In Water 4 GM in Premix 1 BAG IVPB SCH (09:01)
[2023-09-16] MEDS: Spironolactone 100 MG TAB PO SCH (09:01)
[2023-09-16] MEDS: Metolazone 2.5 MG TAB PO SCH (09:01)
[2023-09-16] MEDS: NIFEdipine XL 90 MG ER.TAB PO SCH (09:02)
[2023-09-16] MEDS: Calcitriol 0.25 MCG CAP PO SCH (09:02)
[2023-09-16] MEDS: glipiZIDE 5 MG TAB PO SCH (10:35)
[2023-09-16 10:57] LABS: Glucose 500 mg/dL (80-115)
[2023-09-16] MEDS ORDERED: D5 1/2 NS w/20 mEq KCL 1,000 ML IV PRN (11:00)
[2023-09-16] MEDS ORDERED: Electrolyte Replacement Protocol 1 EACH IVPB SCH (11:00)
[2023-09-16] MEDS ORDERED: NS 0.9% w/ 20 MEQ KCL 1,000 ML IV PRN (11:00)
[2023-09-16] MEDS ORDERED: Sodium Chloride 0.9% 1,000 ML IV PRN ×4 (11:00)
[2023-09-16] MEDS ORDERED: Insulin Reg, Human 100 UNITS in Sodium Chloride 0.9% 100 ML IVPB SCH (11:00)
[2023-09-16] MEDS ORDERED: Dextrose 5 %-0.45 % NaCl 1,000 ML IV PRN (11:00)
[2023-09-16] MEDS: glipiZIDE 10 MG TAB PO SCH (11:06)
[2023-09-16] MEDS ORDERED: Potassium Chloride 20 MEQ TAB ONE (11:08)
[2023-09-16] MEDS: Potassium Chloride 20 MEQ TAB PO SCH (11:09)
[2023-09-16] MEDS ORDERED: Amiodarone 200 MG TAB ONE (11:09)
[2023-09-16] MEDS ORDERED: Heparin 5,000 UNITS/ML VIAL ONE (11:10)
[2023-09-16] MEDS: Amiodarone 200 MG TAB PO SCH (11:10)
[2023-09-16] MEDS: Heparin 5,000 UNITS/ML VIAL SC SCH (11:10)
[2023-09-16] MEDS ORDERED: Mineral Oil ENEMA ONE (11:10)
[2023-09-16] MEDS: Mineral Oil ENEMA PR SCH ×2 (11:11→22:41)
[2023-09-16 11:29] LABS: Hemoglobin A1c 8.3 % (4.0-6.0)
[2023-09-16 11:36] LABS: Critical Call Chem Troponin I NUR.EMN@1136; Troponin I 3.509 ng/mL (< 0.028)
[2023-09-16 11:45] LABS: Actual Bicarbonate (HCO3v) 30.4 mEq/L (22-28); Base Excess 3.6 mEq/L (-2.0 to +3.0); Calcium, Ionized (venous) 1.18 mmol/L (1.16-1.32); Chloride (VBG) 90 mmol/L (98-106); Hematocrit-VBG 30 % (42.0-52.0); Hemoglobin (Hb) 10.2 g/dL (12.6-17.4); Potassium (VBG) 3.67 mmol/L (3.70-5.30); Sodium 133 mmol/L (133-146)
[2023-09-16 12:11] LABS: Phosphorus 3.7 mg/dL (2.3-4.7)
[2023-09-16] MEDS ORDERED: NS 0.9% w/ 20 MEQ KCL 1,000 ML ONE (13:56)
[2023-09-16] MEDS: NS 0.9% w/ 20 MEQ KCL 1,000 ML IV PRN (14:02)
[2023-09-16 16:35] LABS: Anion Gap 22 mmol/L (10-20); BUN (Urea Nitrogen) 54 mg/dL (8.4-25.7); Calc. Creatinine Clearance 12 mL/min (70-130); Calcium 11.1 mg/dL (7.8-10.44); Carbon Dioxide 19 mmol/L (23-31); Chloride 97 mmol/L (98-107); Estimated GFR 6; Glucose 396 mg/dL (80-115); Magnesium 2.1 mg/dL (1.6-2.6); Sodium 133 mmol/L (136-145)
[2023-09-16 18:49] LABS: Critical Call Chem Troponin I NUR.SV13@1849; Troponin I 2.674 ng/mL (< 0.028)
[2023-09-16] MEDS: Ondansetron PF 4 MG/2 ML Vial IVP SCH (19:13)
[2023-09-16] MEDS: Transdermal Patch Removal TOP SCH (19:14)
[2023-09-16 19:26] LABS: Anion Gap 19 mmol/L (10-20); BUN (Urea Nitrogen) 50 mg/dL (8.4-25.7); Calc. Creatinine Clearance 13 mL/min (70-130); Calcium 9.9 mg/dL (7.8-10.44); Carbon Dioxide 23 mmol/L (23-31); Chloride 94 mmol/L (98-107); Estimated GFR 6; Glucose 297 mg/dL (80-115); Potassium 3.6 mmol/L (3.5-5.1); Sodium 132 mmol/L (136-145)
[2023-09-16] MEDS: oxyCODONE/Acetaminophen 5 mg/325 mg Tablet PO PRN (20:26)
[2023-09-16] MEDS ORDERED: NIFEdipine XL 60 MG ER.TAB PO SCH (21:00)
[2023-09-16] MEDS ORDERED: Insulin NPH Human Isophane 100 UNITS/ML (10 ML VIAL) SC SCH (21:00)
[2023-09-16] MEDS ORDERED: HumuLIN 70/30 (300 UNITS/3 ML VIAL) SC SCH (21:00)
[2023-09-16] MEDS ORDERED: Gabapentin 300 MG CAP PO SCH (21:00)
[2023-09-16] MEDS ORDERED: Sacubitril 49 MG/Valsartan 51 MG TABLET PO SCH (21:00)
[2023-09-16] MEDS ORDERED: HumuLIN 70/30 100 Unit/ml 10 ml Vial SC SCH (21:00)
[2023-09-16] MEDS: Aspirin 81 mg Enteric Coated Tablet PO SCH (22:40)
[2023-09-16] MEDS: Latanoprost 0.005% Ophth Soln 2.5 ml Bottle EA EYE SCH (22:40)
[2023-09-16] MEDS: Torsemide 100 MG TAB PO SCH (22:40)
[2023-09-17 05:50] LABS: #Basophils 0.03 10x3/uL (0.0-0.2); #Eosinphils Less than 0.03 10x3/uL (0.0-0.7); %Basophils 0.1 % (0.0-1.0); %Lymphocytes 2.5 % (21.0-51.0); %Monocytes 8.4 % (0.0-10.0); %Neutrophils 88.1 % (42.0-75.0); Hematocrit 25.9 % (42.0-52.0); Hemoglobin 8.4 g/dL (14.0-18.0); Mean Corpuscular HGB CONC 32.4 g/dL (32.0-36.0); Mean Corpuscular Hemoglobin 32.6 pg (27.0-31.0); Mean Corpuscular Volume 100.4 fL (78.0-98.0); Mean Platelet Volume 10.1 fL (7.4-10.4); Platelet Count 252 10x3/uL (130-400); RBC Distribution Width 14.1 % (11.5-14.5); Red Blood Cell (RBC) Count 2.58 mill/uL (4.70-6.10)
[2023-09-17 05:58] LABS: Actual Bicarbonate (HCO3a) 25.3 mEq/L (22-28); Base Excess (BEa) -1.5 mEq/L (-2.0 to +3.0); CO2 Tension 53.5 mmHg (35.0-45.0); Calcium, Ionized (arterial) 1.17 mmol/L (1.12-1.30); Carboxyhemoglobin (COHb) 0.5 gm% (0.0-3.0); Hematocrit-ABG 26 % (42.0-52.0); Potassium - ABG Lab 4.64 mmol/L (3.70-5.30); pH, Arterial 7.293 (7.35-7.45)
[2023-09-17 06:02] LABS: ALV-art Gradient 106.585 mmHg (0-20); Puncture Site RBA
[2023-09-17 06:03] LABS: ALT (SGPT) 8 U/L (8-55); AST (SGOT) 24 U/L (5-34); Albumin 3.4 g/dL (3.4-4.8); Alkaline Phosphatase 52 U/L (40-110); Anion Gap 18 mmol/L (10-20); BUN (Urea Nitrogen) 54 mg/dL (8.4-25.7); Bilirubin, Total 0.6 mg/dL (0.2-1.2); Calc. Creatinine Clearance 12 mL/min (70-130); Calcium 9.6 mg/dL (7.8-10.44); Carbon Dioxide 25 mmol/L (23-31); Chloride 92 mmol/L (98-107); Estimated GFR 5; Globulin 3.3 g/dL (2.4-3.5); Glucose 288 mg/dL (80-115); Potassium 4.4 mmol/L (3.5-5.1); Protein, Total 6.7 g/dL (5.8-8.1); Sodium 131 mmol/L (136-145)
[2023-09-17] MEDS ORDERED: [UNRECOGNIZED DRUG - REMARK] IVPB PRN (06:03)
[2023-09-17] MEDS: NOREPINEPHRINE 8 MG/250 ML-D5W 250 ML IVPB PRN (06:33)
[2023-09-17] MEDS: NOREPINEPHRINE 8 MG/250 ML-D5W 250 ML ONE (06:38)
[2023-09-17] MEDS ORDERED: Vancomycin Dose by Levels Sliding Scale (Wt > 99) FS SCH (06:45)
[2023-09-17 07:08] LABS: Troponin I 3.062 ng/mL (< 0.028)
[2023-09-17] MEDS ORDERED: Magnesium 2 GM/50 ML(in water) 2 GM in Premix 1 BAG IVPB SCH (08:00)
[2023-09-17] MEDS: Vancomycin (BATCH) 2 GM in Premix 1 BAG IVPB SCH (08:40)
[2023-09-17 08:52] LABS: Lactic Acid 2.6 mmol/L (0.5-2.2)
[2023-09-17] MEDS ORDERED: Non-Formulary Item 1 EACH (Calcitriol [Calcitriol] 0.5 MCG Capsule) PO SCH (09:00)
[2023-09-17] MEDS ORDERED: glipiZIDE XL 2.5 mg ER.TAB PO SCH ×2 (09:00)
[2023-09-17] MEDS ORDERED: Amlodipine 10 MG TAB PO SCH (09:00)
[2023-09-17] MEDS ORDERED: Insulin NPH Human Isophane 100 UNITS/ML (10 ML VIAL) SC SCH (09:00)
[2023-09-17] MEDS: Piperacillin/Tazobactam 3.375 GM in Sodium Chloride 0.9% 100 ML IVPB SCH ×2 (09:27→10:37)
[2023-09-17] MEDS ORDERED: hydrALAZINE 20 MG/ML VIAL SLOW IVP PRN (09:52)
[2023-09-17] MEDS ORDERED: Labetalol HCl 100 MG/20 ML VIAL SLOW IVP PRN (09:54)
[2023-09-17] MEDS: Polyethylene Glycol 3350 17 GM Packet PO SCH (10:37)
[2023-09-17] MEDS: Pantoprazole 40 MG VIAL IVP SCH (10:37)
[2023-09-17] MEDS: Folic Acid/Vit B Comp W-C PO SCH (10:38)
[2023-09-17] MEDS: Naloxegol 12.5 MG TAB PO SCH (10:38)
[2023-09-17] MEDS: Bisacodyl 10 MG SUPP PR SCH (10:38)
[2023-09-17] MEDS: Spironolactone 100 MG TAB PO SCH (10:39)
[2023-09-17] MEDS: Torsemide 100 MG TAB PO SCH (10:39)
[2023-09-17] MEDS: Metoclopramide HCl 10 MG (2 mL) VIAL IVP SCH (10:40)
[2023-09-17] MEDS: Metolazone 5 MG TAB PO SCH (10:41)
[2023-09-17] MEDS: DULoxetine 60 MG CAP PO SCH (11:12)
[2023-09-17] MEDS: Metoclopramide HCl 10 MG TAB PO SCH (11:18)
[2023-09-17] MEDS: Pantoprazole DR 40 MG TAB PO SCH (11:18)
[2023-09-17] MEDS: Ergocalciferol 1.25 MG(50,000 UNITS) CAP PO SCH (11:19)
[2023-09-17] MEDS: Morphine 2 MG/ML VIAL SLOW IVP SCH (11:48)
[2023-09-17] MEDS: tiZANidine HCl 4 MG TAB PO PRN (11:48)
[2023-09-17 12:12] LABS: Troponin I 6.166 ng/mL (< 0.028)
[2023-09-17] MEDS ORDERED: Vancomycin Dialysis Sliding Scale (Wt > 99) FS SCH (13:45)
[2023-09-17] MEDS ORDERED: Piperacillin/Tazobactam 4.5 GM in Sodium Chloride 0.9% 100 ML IVPB SCH (14:00)
[2023-09-17 14:16] LABS: RBC Count-Automated (BF) 13 /cu.mm; WBC/Nucleated-Auto (BF) 88 /cu.mm
[2023-09-17 14:30] LABS: Critical Call Chem Troponin I NUR.TLS AT1429; Troponin I 6.927 ng/mL (< 0.028)
[2023-09-17 14:33] LABS: BF Color Yellow; Body Fluid Source Dialysate Fluid; Clarity Clear (Clear); Tube # EDTA
[2023-09-17 14:35] LABS: BF Segmented Neutrophils 30 %; Cell Count Non Hematic 56 %; Lymphocytes 14 %
[2023-09-17 17:26] LABS: Lactic Acid 3.1 mmol/L (0.5-2.2)
[2023-09-17] MEDS: Senokot S 8.6-50 MG TAB PO SCH (21:29)
[2023-09-17] MEDS: Aspirin Chewable 81 MG TAB PO SCH (21:29)
[2023-09-18 00:43] LABS: Lactic Acid 1.9 mmol/L (0.5-2.2)
[2023-09-18] MEDS: fentaNYL 50 mcg/mL 1 mL Vial SLOW IVP SCH (00:45)
[2023-09-18 05:37] LABS: #Basophils 0.04 10x3/uL (0.0-0.2); %Basophils 0.3 % (0.0-1.0); %Eosinophils 0.9 % (0.0-10.0); %Lymphocytes 6.3 % (21.0-51.0); %Monocytes 9.9 % (0.0-10.0); %Neutrophils 81.9 % (42.0-75.0); Hematocrit 23.5 % (42.0-52.0); Hemoglobin 7.7 g/dL (14.0-18.0); Mean Corpuscular HGB CONC 32.8 g/dL (32.0-36.0); Mean Corpuscular Hemoglobin 33.8 pg (27.0-31.0); Mean Corpuscular Volume 103.1 fL (78.0-98.0); Mean Platelet Volume 10.4 fL (7.4-10.4); Platelet Count 190 10x3/uL (130-400); RBC Distribution Width 14.3 % (11.5-14.5); Red Blood Cell (RBC) Count 2.28 mill/uL (4.70-6.10)
[2023-09-18] MEDS: fentaNYL 25 mcg Patch TD SCH (05:40)
[2023-09-18 06:00] LABS: ALT (SGPT) 861 U/L (8-55); AST (SGOT) 1421 U/L (5-34); Albumin 3.2 g/dL (3.4-4.8); Alkaline Phosphatase 56 U/L (40-110); Anion Gap 19 mmol/L (10-20); BUN (Urea Nitrogen) 38 mg/dL (8.4-25.7); Bilirubin, Total 0.7 mg/dL (0.2-1.2); Calc. Creatinine Clearance 16 mL/min (70-130); Calcium 8.9 mg/dL (7.8-10.44); Carbon Dioxide 25 mmol/L (23-31); Chloride 97 mmol/L (98-107); Estimated GFR 8; Globulin 3.3 g/dL (2.4-3.5); Glucose 218 mg/dL (80-115); Potassium 4.6 mmol/L (3.5-5.1); Protein, Total 6.5 g/dL (5.8-8.1); Sodium 136 mmol/L (136-145)
[2023-09-18] MEDS: Bisacodyl 10 MG SUPP PR SCH (08:19)
[2023-09-18] MEDS: Albumin 25% 25 GM (100 mL) BOT IVPB SCH ×2 (08:19→12:54)
[2023-09-18] MEDS: Polyethylene Glycol 3350 17 GM Packet PO SCH (08:20)
[2023-09-18 09:49] LABS: INR-International Normal Ratio 1.5; Prothrombin Time 18.2 sec (12.0-14.7)
[2023-09-18 09:50] LABS: PTT 41.5 sec (22.9-36.1)
[2023-09-18 09:56] LABS: ALT (SGPT) 909 U/L (8-55); AST (SGOT) 1430 U/L (5-34); Albumin 3.5 g/dL (3.4-4.8); Alkaline Phosphatase 54 U/L (40-110); Bilirubin, Direct 0.3 mg/dL (0.1-0.3); Bilirubin, Total 0.6 mg/dL (0.2-1.2); Protein, Total 6.5 g/dL (5.8-8.1)
[2023-09-18 11:00] LABS: O2 Tension (PaO2), arterial 54.7 mmHg (> 80.0)
[2023-09-18] MEDS ORDERED: Heparin 10,000 UNITS/ 10 ML VIAL ONE (11:10)
[2023-09-18 11:34] LABS: Iron 127 ug/dL (65-175); Iron Binding Capacity, Total 136 mcg/dL (261-462)
[2023-09-18] MEDS ORDERED: Bisacodyl 10 MG SUPP PR PRN (12:16)
[2023-09-18] MEDS: Sucroferric Oxyhydroxide [Velphoro] 500 MG Tab.Chew PO SCH (13:36)
[2023-09-18] MEDS: Vancomycin 1 GM in Premix 1 BAG IVPB SCH (16:23)
[2023-09-18] MEDS: Insulin Glargine 30 UNITS/0.3 ML VIAL SC SCH (20:38)
[2023-09-18] MEDS: diphenhydrAMINE 50 MG/ML VIAL ONE (23:09)
[2023-09-18] MEDS: diphenhydrAMINE 50 MG/ML VIAL IVP SCH (23:09)
[2023-09-18] MEDS: Haloperidol Lactate 5 MG/ML VIAL IM SCH (23:49)
[2023-09-19] MEDS: Lorazepam 2 MG/ML VIAL SLOW IVP SCH (02:39)
[2023-09-19 04:24] LABS: Vancomycin, Trough 24.9 ug/mL
[2023-09-19 04:26] LABS: ALT (SGPT) 667 U/L (8-55); AST (SGOT) 699 U/L (5-34); Albumin 3.9 g/dL (3.4-4.8); Alkaline Phosphatase 55 U/L (40-110); Anion Gap 17 mmol/L (10-20); BUN (Urea Nitrogen) 28 mg/dL (8.4-25.7); Bilirubin, Total 0.7 mg/dL (0.2-1.2); Calc. Creatinine Clearance 24 mL/min (70-130); Calcium 9.2 mg/dL (7.8-10.44); Carbon Dioxide 26 mmol/L (23-31); Chloride 100 mmol/L (98-107); Estimated GFR 12; Globulin 2.9 g/dL (2.4-3.5); Glucose 261 mg/dL (80-115); Potassium 4.1 mmol/L (3.5-5.1); Protein, Total 6.8 g/dL (5.8-8.1); Sodium 139 mmol/L (136-145)
[2023-09-19 07:07] LABS: #Basophils 0.05 10x3/uL (0.0-0.2); %Basophils 0.5 % (0.0-1.0); %Eosinophils 3.1 % (0.0-10.0); %Lymphocytes 8.5 % (21.0-51.0); %Monocytes 8.7 % (0.0-10.0); %Neutrophils 78.2 % (42.0-75.0); Hemoglobin 7.1 g/dL (14.0-18.0); Mean Corpuscular HGB CONC 32.3 g/dL (32.0-36.0); Mean Corpuscular Hemoglobin 32.3 pg (27.0-31.0); Mean Platelet Volume 10.8 fL (7.4-10.4); Platelet Count 190 10x3/uL (130-400); RBC Distribution Width 14.2 % (11.5-14.5)
[2023-09-19] MEDS: EPOETIN ALFA-EPBX (ESRD) 10,000 UNITS/ML VIAL SC SCH (08:21)
[2023-09-19] MEDS: Pantoprazole DR 40 MG TAB PO SCH (09:38)
[2023-09-19] MEDS ORDERED: Dexmedetomidine In 0.9 % NaCl 100 ML IVPB SCH (11:00)
[2023-09-19] MEDS: Dexmedetomidine 1,000 MCG, Admixture Fee 1 EACH in Sodium Chloride 0.9% 250 ML 240 ML IVPB SCH (14:23)
[2023-09-19] MEDS: QUEtiapine 25 MG TAB PO SCH (21:00)
[2023-09-20 06:03] LABS: #Basophils 0.08 10x3/uL (0.0-0.2); %Basophils 0.7 % (0.0-1.0); %Eosinophils 3.2 % (0.0-10.0); %Monocytes 10.2 % (0.0-10.0); %Neutrophils 76.8 % (42.0-75.0); Hematocrit 23.6 % (42.0-52.0); Hemoglobin 7.6 g/dL (14.0-18.0); Mean Corpuscular HGB CONC 32.2 g/dL (32.0-36.0); Mean Corpuscular Hemoglobin 33.3 pg (27.0-31.0); Mean Corpuscular Volume 103.5 fL (78.0-98.0); Mean Platelet Volume 10.9 fL (7.4-10.4); Platelet Count 203 10x3/uL (130-400); RBC Distribution Width 14.5 % (11.5-14.5); Red Blood Cell (RBC) Count 2.28 mill/uL (4.70-6.10)
[2023-09-20 06:14] LABS: ALT (SGPT) 492 U/L (8-55); AST (SGOT) 282 U/L (5-34); Albumin 3.5 g/dL (3.4-4.8); Alkaline Phosphatase 56 U/L (40-110); Anion Gap 22 mmol/L (10-20); BUN (Urea Nitrogen) 48 mg/dL (8.4-25.7); Bilirubin, Total 0.7 mg/dL (0.2-1.2); Calc. Creatinine Clearance 17 mL/min (70-130); Calcium 9.1 mg/dL (7.8-10.44); Carbon Dioxide 22 mmol/L (23-31); Chloride 100 mmol/L (98-107); Estimated GFR 8; Globulin 3.1 g/dL (2.4-3.5); Glucose 249 mg/dL (80-115); Potassium 4.5 mmol/L (3.5-5.1); Protein, Total 6.6 g/dL (5.8-8.1); Sodium 139 mmol/L (136-145)
[2023-09-20 08:49] LABS: Vancomycin, Trough 20.5 ug/mL
[2023-09-20] MEDS: Insulin Glargine 30 UNITS/0.3 ML VIAL SC SCH (20:36)
[2023-09-20] MEDS ORDERED: oxyCODONE/Acetaminophen 5 mg/325 mg Tablet PO PRN (21:51)
[2023-09-20] MEDS: oxyCODONE/Acetaminophen 5 mg/325 mg Tablet PO SCH (22:27)
[2023-09-21 04:52] LABS: #Basophils 0.08 10x3/uL (0.0-0.2); %Basophils 0.7 % (0.0-1.0); %Monocytes 15.3 % (0.0-10.0); %Neutrophils 69.5 % (42.0-75.0); Hematocrit 22.6 % (42.0-52.0); Hemoglobin 7.5 g/dL (14.0-18.0); Mean Corpuscular HGB CONC 33.2 g/dL (32.0-36.0); Mean Corpuscular Volume 99.6 fL (78.0-98.0); Mean Platelet Volume 10.3 fL (7.4-10.4); Platelet Count 206 10x3/uL (130-400); RBC Distribution Width 14.4 % (11.5-14.5); Red Blood Cell (RBC) Count 2.27 mill/uL (4.70-6.10)
[2023-09-21 05:17] LABS: ALT (SGPT) 309 U/L (8-55); AST (SGOT) 100 U/L (5-34); Albumin 3.2 g/dL (3.4-4.8); Alkaline Phosphatase 58 U/L (40-110); Anion Gap 15 mmol/L (10-20); BUN (Urea Nitrogen) 36 mg/dL (8.4-25.7); Bilirubin, Total 0.6 mg/dL (0.2-1.2); Calc. Creatinine Clearance 22 mL/min (70-130); Calcium 8.8 mg/dL (7.8-10.44); Carbon Dioxide 25 mmol/L (23-31); Chloride 99 mmol/L (98-107); Estimated GFR 12; Globulin 3.2 g/dL (2.4-3.5); Glucose 217 mg/dL (80-115); Potassium 3.7 mmol/L (3.5-5.1); Protein, Total 6.4 g/dL (5.8-8.1); Sodium 135 mmol/L (136-145)
[2023-09-21 08:29] LABS: Vancomycin, Trough 16.1 ug/mL
[2023-09-21] MEDS: oxyCODONE/Acetaminophen 5 mg/325 mg Tablet PO PRN (11:39)
[2023-09-21] MEDS: HumaLOG 300 UNITS/3 ML VIAL SC SCH (12:21)
[2023-09-21] MEDS ORDERED: Polyethylene Glycol 3350 17 GM Packet PO PRN (12:33)
[2023-09-21] MEDS: Vancomycin 1 GM in Premix 1 BAG IVPB SCH (16:59)
[2023-09-21] MEDS: Insulin Glargine 30 UNITS/0.3 ML VIAL SC SCH (21:15)
[2023-09-22 08:40] LABS: #Basophils 0.07 10x3/uL (0.0-0.2); %Basophils 0.6 % (0.0-1.0); %Eosinophils 4.7 % (0.0-10.0); %Lymphocytes 10.6 % (21.0-51.0); %Monocytes 15.3 % (0.0-10.0); %Neutrophils 65.3 % (42.0-75.0); Hematocrit 25.4 % (42.0-52.0); Hemoglobin 8.2 g/dL (14.0-18.0); Mean Corpuscular HGB CONC 32.3 g/dL (32.0-36.0); Mean Corpuscular Hemoglobin 33.7 pg (27.0-31.0); Mean Corpuscular Volume 104.5 fL (78.0-98.0); Mean Platelet Volume 10.5 fL (7.4-10.4); Platelet Count 236 10x3/uL (130-400); Red Blood Cell (RBC) Count 2.43 mill/uL (4.70-6.10)
[2023-09-22] MEDS ORDERED: diphenhydrAMINE 30 GM TUBE TOP PRN (08:58)
[2023-09-22 09:25] LABS: Vancomycin, Trough 25.2 ug/mL
[2023-09-22 09:29] LABS: ALT (SGPT) 218 U/L (8-55); AST (SGOT) 45 U/L (5-34); Albumin 3.4 g/dL (3.4-4.8); Alkaline Phosphatase 56 U/L (40-110); Anion Gap 22 mmol/L (10-20); BUN (Urea Nitrogen) 56 mg/dL (8.4-25.7); Bilirubin, Total 0.5 mg/dL (0.2-1.2); Calc. Creatinine Clearance 15 mL/min (70-130); Calcium 9.1 mg/dL (7.8-10.44); Carbon Dioxide 20 mmol/L (23-31); Chloride 99 mmol/L (98-107); Estimated GFR 8; Globulin 3.4 g/dL (2.4-3.5); Glucose 244 mg/dL (80-115); Protein, Total 6.8 g/dL (5.8-8.1); Sodium 137 mmol/L (136-145)
[2023-09-22] MEDS: Senokot S 8.6-50 MG TAB PO PRN (10:39)
[2023-09-22] MEDS: diphenhydrAMINE 25 MG CAP PO PRN (10:39)
[2023-09-22] MEDS ORDERED: Communication Order-Pharmacy FS SCH (13:30)
[2023-09-22] MEDS: Acetaminophen 325 MG TAB PO PRN (17:27)
[2023-09-23 04:44] LABS: #Basophils 0.07 10x3/uL (0.0-0.2); %Basophils 0.6 % (0.0-1.0); %Eosinophils 5.7 % (0.0-10.0); %Monocytes 14.5 % (0.0-10.0); %Neutrophils 63.8 % (42.0-75.0); Hemoglobin 7.5 g/dL (14.0-18.0); Mean Corpuscular HGB CONC 32.6 g/dL (32.0-36.0); Mean Corpuscular Hemoglobin 33.3 pg (27.0-31.0); Mean Corpuscular Volume 102.2 fL (78.0-98.0); Mean Platelet Volume 10.6 fL (7.4-10.4); Platelet Count 239 10x3/uL (130-400); RBC Distribution Width 14.9 % (11.5-14.5); Red Blood Cell (RBC) Count 2.25 mill/uL (4.70-6.10)
[2023-09-23 05:59] LABS: ALT (SGPT) 146 U/L (8-55); AST (SGOT) 29 U/L (5-34); Alkaline Phosphatase 45 U/L (40-110); Anion Gap 15 mmol/L (10-20); BUN (Urea Nitrogen) 70 mg/dL (8.4-25.7); Bilirubin, Total 0.4 mg/dL (0.2-1.2); Calc. Creatinine Clearance 13 mL/min (70-130); Carbon Dioxide 24 mmol/L (23-31); Chloride 100 mmol/L (98-107); Estimated GFR 6; Globulin 3.2 g/dL (2.4-3.5); Glucose 166 mg/dL (80-115); Potassium 3.9 mmol/L (3.5-5.1); Protein, Total 6.2 g/dL (5.8-8.1); Sodium 135 mmol/L (136-145)
[2023-09-23] MEDS: glipiZIDE 5 MG TAB PO SCH ×2 (09:01→09:05)
[2023-09-23] MEDS: Polyethylene Glycol 3350 17 GM Packet PO SCH (09:02)
[2023-09-23] MEDS: DULoxetine 60 MG CAP PO SCH (09:45)
[2023-09-23] MEDS: Sucroferric Oxyhydroxide [Velphoro] 500 MG Tab.Chew PO SCH (12:00)
[2023-09-24 04:27] LABS: #Basophils 0.07 10x3/uL (0.0-0.2); %Basophils 0.6 % (0.0-1.0); %Eosinophils 4.9 % (0.0-10.0); %Lymphocytes 12.7 % (21.0-51.0); %Neutrophils 67.5 % (42.0-75.0); Hematocrit 24.5 % (42.0-52.0); Hemoglobin 8.1 g/dL (14.0-18.0); Mean Corpuscular HGB CONC 33.1 g/dL (32.0-36.0); Mean Corpuscular Hemoglobin 33.1 pg (27.0-31.0); Mean Platelet Volume 10.5 fL (7.4-10.4); Platelet Count 266 10x3/uL (130-400); Red Blood Cell (RBC) Count 2.45 mill/uL (4.70-6.10)
[2023-09-24 05:00] LABS: ALT (SGPT) 119 U/L (8-55); AST (SGOT) 20 U/L (5-34); Albumin 3.1 g/dL (3.4-4.8); Alkaline Phosphatase 49 U/L (40-110); Anion Gap 21 mmol/L (10-20); BUN (Urea Nitrogen) 72 mg/dL (8.4-25.7); Bilirubin, Total 0.4 mg/dL (0.2-1.2); Calc. Creatinine Clearance 12 mL/min (70-130); Calcium 8.8 mg/dL (7.8-10.44); Carbon Dioxide 22 mmol/L (23-31); Chloride 95 mmol/L (98-107); Estimated GFR 6; Globulin 3.5 g/dL (2.4-3.5); Glucose 544 mg/dL (80-115); Potassium 3.6 mmol/L (3.5-5.1); Protein, Total 6.6 g/dL (5.8-8.1); Sodium 134 mmol/L (136-145)
[2023-09-24] MEDS ORDERED: Communication Order-Pharmacy FS SCH (06:30)
[2023-09-24] MEDS: DULoxetine 60 MG CAP PO SCH (08:22)
[2023-09-24] MEDS ORDERED: Heparin 10,000 UNITS/ 10 ML VIAL ONE (11:01)
[2023-09-24] MEDS ORDERED: Verapamil 5 MG/2 ML VIAL ONE (11:01)
[2023-09-24] MEDS ORDERED: Nitroglycerin 50 MG/250 ML BOT 250 ML ONE (11:02)
[2023-09-24] MEDS: Insulin Glargine 30 UNITS/0.3 ML VIAL SC SCH (11:42)
[2023-09-24] MEDS ORDERED: Iopamidol 370 76% 100 ML VIAL ONE (13:08)
[2023-09-24] MEDS ORDERED: Midazolam HCl 2 mg/2 ml Vial ONE (13:18)
[2023-09-24] MEDS ORDERED: fentaNYL 50 mcg/mL 1 mL Vial ONE (13:18)
[2023-09-24] MEDS ORDERED: Nitroglycerin 0.4 MG TAB (25 Tab Bottle) SL PRN (13:42)
[2023-09-24] MEDS: Sterile Water 10 ML VIAL IVP SCH (17:43)
[2023-09-24] MEDS: Activase 2 MG VIAL CATH SCH ×2 (17:43)
[2023-09-24] MEDS ORDERED: Gabapentin 300 MG CAP PO SCH (18:00)
[2023-09-24] MEDS: Ondansetron PF 4 MG/2 ML Vial IVP PRN (22:47)
[2023-09-24] MEDS: Gabapentin 300 MG CAP PO SCH (22:54)
[2023-09-25 04:50] LABS: #Basophils 0.05 10x3/uL (0.0-0.2); %Basophils 0.4 % (0.0-1.0); %Eosinophils 4.2 % (0.0-10.0); %Lymphocytes 9.4 % (21.0-51.0); %Monocytes 10.4 % (0.0-10.0); %Neutrophils 74.3 % (42.0-75.0); Hematocrit 25.2 % (42.0-52.0); Hemoglobin 8.1 g/dL (14.0-18.0); Mean Corpuscular HGB CONC 32.1 g/dL (32.0-36.0); Mean Corpuscular Hemoglobin 32.3 pg (27.0-31.0); Mean Corpuscular Volume 100.4 fL (78.0-98.0); Mean Platelet Volume 9.8 fL (7.4-10.4); Platelet Count 242 10x3/uL (130-400); RBC Distribution Width 15.1 % (11.5-14.5); Red Blood Cell (RBC) Count 2.51 mill/uL (4.70-6.10)
[2023-09-25] MEDS: Acetaminophen/Codeine 30-300mg Tablet PO PRN ×2 (05:19→20:30)
[2023-09-25 05:40] LABS: ALT (SGPT) 88 U/L (8-55); AST (SGOT) 23 U/L (5-34); Albumin 3.1 g/dL (3.4-4.8); Alkaline Phosphatase 46 U/L (40-110); Anion Gap 13 mmol/L (10-20); BUN (Urea Nitrogen) 30 mg/dL (8.4-25.7); Bilirubin, Total 0.4 mg/dL (0.2-1.2); Calc. Creatinine Clearance 23 mL/min (70-130); Calcium 8.8 mg/dL (7.8-10.44); Carbon Dioxide 27 mmol/L (23-31); Chloride 100 mmol/L (98-107); Estimated GFR 12; Globulin 3.4 g/dL (2.4-3.5); Glucose 99 mg/dL (80-115); Potassium 4.6 mmol/L (3.5-5.1); Protein, Total 6.5 g/dL (5.8-8.1); Sodium 135 mmol/L (136-145)
[2023-09-26 05:01] LABS: #Basophils 0.05 10x3/uL (0.0-0.2); %Basophils 0.5 % (0.0-1.0); %Eosinophils 5.4 % (0.0-10.0); %Lymphocytes 15.3 % (21.0-51.0); %Monocytes 16.9 % (0.0-10.0); %Neutrophils 60.6 % (42.0-75.0); Hematocrit 24.1 % (42.0-52.0); Hemoglobin 7.7 g/dL (14.0-18.0); Mean Corpuscular Hemoglobin 33.5 pg (27.0-31.0); Mean Corpuscular Volume 104.8 fL (78.0-98.0); Mean Platelet Volume 10.4 fL (7.4-10.4); Platelet Count 265 10x3/uL (130-400); RBC Distribution Width 15.2 % (11.5-14.5)
[2023-09-26 05:25] LABS: ALT (SGPT) 69 U/L (8-55); AST (SGOT) 21 U/L (5-34); Alkaline Phosphatase 51 U/L (40-110); Anion Gap 14 mmol/L (10-20); BUN (Urea Nitrogen) 41 mg/dL (8.4-25.7); Bilirubin, Total 0.4 mg/dL (0.2-1.2); Calc. Creatinine Clearance 16 mL/min (70-130); Calcium 8.8 mg/dL (7.8-10.44); Carbon Dioxide 25 mmol/L (23-31); Chloride 98 mmol/L (98-107); Cholesterol 153 mg/dl (< 200 Desired); Estimated GFR 8; Globulin 3.5 g/dL (2.4-3.5); Glucose 82 mg/dL (80-115); HDL Cholesterol 22 mg/dL (>60 Neg Risk); LDL Cholesterol, Calculated 93 mg/dL; Potassium 4.3 mmol/L (3.5-5.1); Protein, Total 6.5 g/dL (5.8-8.1); Sodium 133 mmol/L (136-145); Triglycerides 189 mg/dL (Less than 150)
[2023-09-26] MEDS: EPOETIN ALFA-EPBX (ESRD) 10,000 UNITS/ML VIAL SC SCH (11:40)
[2023-09-27 04:20] LABS: #Basophils 0.07 10x3/uL (0.0-0.2); %Basophils 0.7 % (0.0-1.0); %Eosinophils 4.9 % (0.0-10.0); %Lymphocytes 10.7 % (21.0-51.0); %Monocytes 15.2 % (0.0-10.0); %Neutrophils 67.4 % (42.0-75.0); Hemoglobin 9.6 g/dL (14.0-18.0); Mean Corpuscular HGB CONC 33.1 g/dL (32.0-36.0); Mean Corpuscular Hemoglobin 32.8 pg (27.0-31.0); Mean Platelet Volume 10.2 fL (7.4-10.4); Platelet Count 227 10x3/uL (130-400); RBC Distribution Width 17.2 % (11.5-14.5); Red Blood Cell (RBC) Count 2.93 mill/uL (4.70-6.10)
[2023-09-27 04:50] LABS: ALT (SGPT) 53 U/L (8-55); AST (SGOT) 20 U/L (5-34); Alkaline Phosphatase 48 U/L (40-110); Anion Gap 14 mmol/L (10-20); BUN (Urea Nitrogen) 22 mg/dL (8.4-25.7); Bilirubin, Total 0.5 mg/dL (0.2-1.2); Calc. Creatinine Clearance 25 mL/min (70-130); Calcium 8.5 mg/dL (7.8-10.44); Carbon Dioxide 25 mmol/L (23-31); Chloride 98 mmol/L (98-107); Estimated GFR 14; Globulin 3.5 g/dL (2.4-3.5); Glucose 81 mg/dL (80-115); Protein, Total 6.5 g/dL (5.8-8.1); Sodium 133 mmol/L (136-145)
[2023-09-27] MEDS ORDERED: Lidocaine 1% PF 5 ML VIAL ONE ×2 (10:04→10:24)
[2023-09-27] MEDS ORDERED: Heparin 10,000 UNITS/ 10 ML VIAL ONE (10:04)
[2023-09-27] MEDS ORDERED: EPINEPHrine 1 MG/ML VIAL ONE (10:04)
[2023-09-27] MEDS ORDERED: Bupivacaine 0.25% HCL 30 ML VIAL ONE (10:04)
[2023-09-27] MEDS ORDERED: Sodium Chloride 0.9% 100 ML ONE (10:13)
[2023-09-27] MEDS ORDERED: CEFAZOLIN 2 GM VIAL ONE (10:13)
[2023-09-27] MEDS ORDERED: fentaNYL PF 100 MCG/2 ML SYRINGE ONE (10:24)
[2023-09-27] MEDS ORDERED: PROPOFOL 20 ML ONE (10:25)
[2023-09-27] MEDS ORDERED: Ondansetron PF 4 MG/2 ML Vial ONE (11:02)
[2023-09-27] MEDS ORDERED: PHENYLEPHRINE-NS 100 MCG/ML 10 ML SYRINGE ONE (11:08)
[2023-09-28 06:28] LABS: #Basophils 0.09 10x3/uL (0.0-0.2); %Basophils 0.9 % (0.0-1.0); %Eosinophils 5.1 % (0.0-10.0); %Lymphocytes 10.6 % (21.0-51.0); %Monocytes 15.9 % (0.0-10.0); %Neutrophils 66.6 % (42.0-75.0); Hematocrit 30.2 % (42.0-52.0); Hemoglobin 9.8 g/dL (14.0-18.0); Mean Corpuscular HGB CONC 32.5 g/dL (32.0-36.0); Mean Corpuscular Volume 98.7 fL (78.0-98.0); Mean Platelet Volume 10.6 fL (7.4-10.4); Platelet Count 264 10x3/uL (130-400); RBC Distribution Width 16.4 % (11.5-14.5); Red Blood Cell (RBC) Count 3.06 mill/uL (4.70-6.10)
[2023-09-28 06:42] LABS: ALT (SGPT) 31 U/L (8-55); AST (SGOT) 19 U/L (5-34); Alkaline Phosphatase 51 U/L (40-110); Anion Gap 14 mmol/L (10-20); BUN (Urea Nitrogen) 35 mg/dL (8.4-25.7); Bilirubin, Total 0.3 mg/dL (0.2-1.2); Calc. Creatinine Clearance 17 mL/min (70-130); Calcium 8.8 mg/dL (7.8-10.44); Carbon Dioxide 28 mmol/L (23-31); Chloride 99 mmol/L (98-107); Estimated GFR 9; Globulin 3.7 g/dL (2.4-3.5); Glucose 111 mg/dL (80-115); Potassium 4.6 mmol/L (3.5-5.1); Protein, Total 6.7 g/dL (5.8-8.1); Sodium 136 mmol/L (136-145)
[2023-09-29 04:39] LABS: #Basophils 0.08 10x3/uL (0.0-0.2); %Basophils 0.7 % (0.0-1.0); %Eosinophils 5.9 % (0.0-10.0); %Lymphocytes 9.1 % (21.0-51.0); %Monocytes 13.1 % (0.0-10.0); %Neutrophils 70.7 % (42.0-75.0); Hematocrit 30.8 % (42.0-52.0); Mean Corpuscular HGB CONC 32.5 g/dL (32.0-36.0); Mean Corpuscular Hemoglobin 32.5 pg (27.0-31.0); Mean Platelet Volume 10.3 fL (7.4-10.4); Platelet Count 291 10x3/uL (130-400); RBC Distribution Width 15.6 % (11.5-14.5); Red Blood Cell (RBC) Count 3.08 mill/uL (4.70-6.10)
[2023-09-29 05:01] LABS: ALT (SGPT) 16 U/L (8-55); AST (SGOT) 19 U/L (5-34); Albumin 3.1 g/dL (3.4-4.8); Alkaline Phosphatase 50 U/L (40-110); Anion Gap 16 mmol/L (10-20); BUN (Urea Nitrogen) 46 mg/dL (8.4-25.7); Bilirubin, Total 0.4 mg/dL (0.2-1.2); Calc. Creatinine Clearance 15 mL/min (70-130); Calcium 9.3 mg/dL (7.8-10.44); Carbon Dioxide 27 mmol/L (23-31); Chloride 98 mmol/L (98-107); Estimated GFR 7; Globulin 3.7 g/dL (2.4-3.5); Glucose 75 mg/dL (80-115); Potassium 4.6 mmol/L (3.5-5.1); Protein, Total 6.8 g/dL (5.8-8.1); Sodium 136 mmol/L (136-145)
[2023-09-29] MEDS ORDERED: Communication Order-Pharmacy FS SCH (11:14)
[2023-09-29] MEDS: Insulin Glargine 30 UNITS/0.3 ML VIAL SC SCH (20:48)
[2023-09-30] MEDS ORDERED: CEFAZOLIN 2 GM in Sodium Chloride 0.9% 100 ML IVPB SCH (00:01)
[2023-09-30 00:52] LABS: INR-International Normal Ratio 1.1; Prothrombin Time 13.9 sec (12.0-14.7)
[2023-09-30 00:53] LABS: Anion Gap 17 mmol/L (10-20); BUN (Urea Nitrogen) 27 mg/dL (8.4-25.7); Calc. Creatinine Clearance 21 mL/min (70-130); Calcium 8.9 mg/dL (7.8-10.44); Carbon Dioxide 23 mmol/L (23-31); Chloride 100 mmol/L (98-107); Estimated GFR 11; Glucose 115 mg/dL (80-115); PTT 38.4 sec (22.9-36.1); Sodium 135 mmol/L (136-145)
[2023-09-30 04:34] LABS: #Basophils 0.08 10x3/uL (0.0-0.2); %Basophils 0.7 % (0.0-1.0); %Eosinophils 5.9 % (0.0-10.0); %Lymphocytes 8.3 % (21.0-51.0); %Monocytes 14.2 % (0.0-10.0); %Neutrophils 70.4 % (42.0-75.0); Hemoglobin 9.9 g/dL (14.0-18.0); Mean Corpuscular HGB CONC 31.9 g/dL (32.0-36.0); Mean Corpuscular Hemoglobin 32.2 pg (27.0-31.0); Mean Platelet Volume 10.2 fL (7.4-10.4); Platelet Count 285 10x3/uL (130-400); RBC Distribution Width 15.3 % (11.5-14.5); Red Blood Cell (RBC) Count 3.07 mill/uL (4.70-6.10)
[2023-09-30 04:46] LABS: ALT (SGPT) 11 U/L (8-55); AST (SGOT) 20 U/L (5-34); Alkaline Phosphatase 59 U/L (40-110); Anion Gap 16 mmol/L (10-20); BUN (Urea Nitrogen) 29 mg/dL (8.4-25.7); Bilirubin, Total 0.3 mg/dL (0.2-1.2); Calc. Creatinine Clearance 20 mL/min (70-130); Calcium 8.8 mg/dL (7.8-10.44); Carbon Dioxide 25 mmol/L (23-31); Chloride 99 mmol/L (98-107); Estimated GFR 11; Globulin 3.8 g/dL (2.4-3.5); Glucose 114 mg/dL (80-115); Potassium 5.2 mmol/L (3.5-5.1); Protein, Total 6.8 g/dL (5.8-8.1); Sodium 135 mmol/L (136-145)
[2023-09-30] MEDS ORDERED: Dexamethasone 4 mg/ml Vial ONE (09:01)
[2023-09-30] MEDS ORDERED: Bupivacaine PF 0.5% 30 ML VIAL ONE (09:02)
[2023-09-30] MEDS ORDERED: EPINEPHrine 1 MG/ML VIAL ONE ×2 (09:02→16:41)
[2023-09-30] MEDS ORDERED: PHENYLEPHRINE-NS 100 MCG/ML 10 ML SYRINGE ONE ×2 (09:02→14:15)
[2023-09-30] MEDS ORDERED: Albumin 5% 500 ML ONE ×2 (09:02→14:31)
[2023-09-30] MEDS ORDERED: Heparin 10,000 UNITS/1 ML VIAL 30,000 UNITS in Sodium Chloride 0.9% 1,000 ML FS SCH (09:15)
[2023-09-30] MEDS ORDERED: Midazolam HCl 2 mg/2 ml Vial ONE ×4 (09:27→16:33)
[2023-09-30] MEDS ORDERED: Lidocaine 1% MPF 2 ML VIAL ONE (09:27)
[2023-09-30] MEDS ORDERED: CEFAZOLIN 2 GM VIAL ONE (09:45)
[2023-09-30] MEDS ORDERED: Sodium Chloride 0.9% 100 ML ONE (09:45)
[2023-09-30] MEDS ORDERED: Fentanyl 250 MCG/5 ML VIAL ONE ×2 (10:33→13:21)
[2023-09-30] MEDS ORDERED: Heparin 5,000 UNITS/ML VIAL ONE (11:30)
[2023-09-30] MEDS ORDERED: Thrombin 5000 UNITS/5 ML VIAL ONE (11:30)
[2023-09-30] MEDS ORDERED: Calcium Chloride 1 GM/10 ML Abboject SYRINGE ONE (11:30)
[2023-09-30] MEDS ORDERED: Magnesium 5 GM/10 ML VIAL ONE (11:30)
[2023-09-30] MEDS ORDERED: Vecuronium 10 MG VIAL ONE (11:30)
[2023-09-30] MEDS ORDERED: Aminocaproic Acid 5 GM/20 ML VIAL ONE (11:30)
[2023-09-30] MEDS ORDERED: Norepinephrine 4 MG/4 ML VIAL ONE (11:30)
[2023-09-30] MEDS ORDERED: Cardioplegic Soln 1,000 ML BAG ONE (11:30)
[2023-09-30] MEDS ORDERED: Potassium Chloride 60 mEq (30 mL) VIAL ONE (11:30)
[2023-09-30] MEDS ORDERED: Protamine Sulfate 250 MG/25 ML VIAL ONE (11:30)
[2023-09-30] MEDS ORDERED: Sodium Bicarb 50 mEq/50 ML VIAL ONE (11:30)
[2023-09-30] MEDS ORDERED: Papaverine 60 MG/2 ML VIAL ONE (11:30)
[2023-09-30] MEDS ORDERED: Heparin 30,000 units/30 ml VIAL ONE (11:30)
[2023-09-30] MEDS ORDERED: Vancomycin 1 GM VIAL ONE (11:30)
[2023-09-30] MEDS ORDERED: Mannitol 12.5 GM/50 ML ONE (11:30)
[2023-09-30] MEDS ORDERED: Lidocaine 2% PF 100 mg/5 ml Syringe ONE (11:30)
[2023-09-30] MEDS ORDERED: PROPOFOL 20 ML ONE (13:36)
[2023-09-30] MEDS ORDERED: Lidocaine 1% PF 5 ML VIAL ONE (14:46)
[2023-09-30] MEDS ORDERED: EPINEPHrine 1 MG/10 ML Abboject SYRINGE ONE ×2 (16:40→16:41)
[2023-09-30] MEDS ORDERED: Rocuronium Bromide 50 MG/5 ML VIAL ONE (17:36)
[2023-09-30] MEDS ORDERED: Post-Op Insulin Drip Protocol IVPB SCH (17:39)
[2023-09-30] MEDS ORDERED: Guaifenesin DM 100-10/5 ML UDCUP PO PRN (17:39)
[2023-09-30] MEDS ORDERED: Phenylephrine 40 MG in Sodium Chloride 0.9% 250 ML 250 ML IVPB PRN (17:39)
[2023-09-30] MEDS ORDERED: Bisacodyl 5 MG TAB PO PRN (17:39)
[2023-09-30] MEDS ORDERED: Potassium Chloride 20 MEQ (100 mL) BAG IVPB PRN (17:39)
[2023-09-30] MEDS ORDERED: Promethazine HCl 25 MG/ML VIAL IM PRN (17:39)
[2023-09-30] MEDS ORDERED: Ipratropium/Albuterol 3 ML NEB NEB PRN (17:39)
[2023-09-30] MEDS ORDERED: HYDROcodone/Acetaminophen 5/325 mg Tablet PO PRN (17:39)
[2023-09-30] MEDS ORDERED: Morphine 2 MG/ML VIAL SLOW IVP PRN (17:39)
[2023-09-30] MEDS ORDERED: hydrALAZINE 20 MG/ML VIAL SLOW IVP PRN (17:39)
[2023-09-30] MEDS ORDERED: Bisacodyl 10 MG SUPP PR PRN (17:39)
[2023-09-30] MEDS ORDERED: traMADol HCl 50 MG TAB PO PRN (17:39)
[2023-09-30] MEDS ORDERED: Mag-Al 1200 mg/1200 mg/30 ML UDCUP PO PRN (17:39)
[2023-09-30] MEDS ORDERED: Albumin 5% 12.5 GM (250 mL) BOT IVPB PRN ×2 (17:39)
[2023-09-30] MEDS ORDERED: fentaNYL 50 mcg/mL 1 mL Vial SLOW IVP PRN ×2 (17:39)
[2023-09-30] MEDS ORDERED: niCARdipine 25 MG in Sodium Chloride 0.9% 250 ML 250 ML IVPB PRN (17:39)
[2023-09-30] MEDS ORDERED: Nitroglycerin 50 MG/250 ML BOT 250 ML IVPB PRN (17:39)
[2023-09-30] MEDS ORDERED: Dextrose 50% Abboject 50 ML SYRINGE SLOW IVP PRN (18:00)
[2023-09-30] MEDS ORDERED: Dextrose 5% in Water 1,000 ML IV PRN (18:00)
[2023-09-30] MEDS ORDERED: Glucagon 1 MG/ML KIT SC PRN (18:00)
[2023-09-30] MEDS ORDERED: Ventilator Sedation Protocol 1 EACH FS SCH (18:04)
[2023-09-30 18:21] LABS: Actual Bicarbonate (HCO3a) 19.2 mEq/L (22-28); Base Excess (BEa) -6.6 mEq/L (-2.0 to +3.0); CO2 Tension 39.4 mmHg (35.0-45.0); Calcium, Ionized (arterial) 1.14 mmol/L (1.12-1.30); Carboxyhemoglobin (COHb) 0.3 gm% (0.0-3.0); Hematocrit-ABG 28 % (42.0-52.0); Hemoglobin (Hb) 9.5 g/dL (14.0-18.0); O2 Tension (PaO2), arterial 169.1 mmHg (> 80.0); Potassium - ABG Lab 4.71 mmol/L (3.70-5.30); pH, Arterial 7.305 (7.35-7.45)
[2023-09-30 18:22] LABS: Puncture Site Arterial Line
[2023-09-30] MEDS: Sodium Bicarb 50 MEQ/50 ML Abboject 8.4% SYRINGE ONE (18:23)
[2023-09-30] MEDS ORDERED: Lorazepam 2 MG/ML VIAL SLOW IVP PRN (18:30)
[2023-09-30] MEDS ORDERED: Fentanyl BOLUS 250 ML IVPB PRN (18:30)
[2023-09-30] MEDS ORDERED: Propofol BOLUS 1,000 MG/100 ML VIAL IV PRN (18:30)
[2023-09-30] MEDS ORDERED: DISCONTINUE PREVIOUS NARCOTIC PAIN MEDICATIONS AND BENZODIAZEPINES FS SCH (18:30)
[2023-09-30] MEDS ORDERED: Propofol 1,000 MG/100 ML VIAL IV PRN (18:30)
[2023-09-30] MEDS: Morphine 2 MG/ML VIAL SLOW IVP PRN (18:43)
[2023-09-30] MEDS ORDERED: EPINEPHrine 4 MG in Dextrose 5% in Water 250 ML IV SCH (18:45)
[2023-09-30] MEDS ORDERED: EPINEPHrine 4 MG in Dextrose 5% in Water 250 ML IVP SCH (18:45)
[2023-09-30 18:48] LABS: ALT (SGPT) 7 U/L (8-55); AST (SGOT) 34 U/L (5-34); Albumin 2.6 g/dL (3.4-4.8); Alkaline Phosphatase 35 U/L (40-110); Anion Gap 19 mmol/L (10-20); BUN (Urea Nitrogen) 30 mg/dL (8.4-25.7); Bilirubin, Total 0.6 mg/dL (0.2-1.2); Calc. Creatinine Clearance 20 mL/min (70-130); Calcium 8.1 mg/dL (7.8-10.44); Carbon Dioxide 16 mmol/L (23-31); Chloride 108 mmol/L (98-107); Estimated GFR 11; Globulin 1.9 g/dL (2.4-3.5); Glucose 204 mg/dL (80-115); Potassium 4.9 mmol/L (3.5-5.1); Protein, Total 4.5 g/dL (5.8-8.1); Sodium 138 mmol/L (136-145)
[2023-09-30 18:50] LABS: #Basophils 0.06 10x3/uL (0.0-0.2); %Basophils 0.3 % (0.0-1.0); %Eosinophils 1.4 % (0.0-10.0); %Lymphocytes 9.2 % (21.0-51.0); %Monocytes 8.7 % (0.0-10.0); %Neutrophils 79.1 % (42.0-75.0); Hemoglobin 8.6 g/dL (14.0-18.0); Mean Corpuscular HGB CONC 31.9 g/dL (32.0-36.0); Mean Corpuscular Hemoglobin 32.3 pg (27.0-31.0); Mean Corpuscular Volume 101.5 fL (78.0-98.0); Mean Platelet Volume 10.3 fL (7.4-10.4); Platelet Count 164 10x3/uL (130-400); Red Blood Cell (RBC) Count 2.66 mill/uL (4.70-6.10)
[2023-09-30 18:51] LABS: INR-International Normal Ratio 1.4; Prothrombin Time 17.2 sec (12.0-14.7)
[2023-09-30 18:52] LABS: PTT 35.8 sec (22.9-36.1)
[2023-09-30] MEDS: EPINEPHrine 1 MG/ML VIAL ONE (19:13)
[2023-09-30] MEDS: Sodium Chloride 0.9% 1,000 ML IV SCH (19:14)
[2023-09-30] MEDS: NOREPINEPHRINE 8 MG/250 ML-D5W 250 ML IVPB PRN (19:18)
[2023-09-30] MEDS: Insulin Reg, Human 100 UNITS in Sodium Chloride 0.9% 100 ML IVPB SCH (19:24)
[2023-09-30] MEDS: Desmopressin Acetate 4 mcg/ml AMPUL FS SCH (20:48)
[2023-09-30] MEDS: Sodium Bicarb 50 MEQ/50 ML Abboject 8.4% SYRINGE IVP SCH (20:51)
[2023-09-30] MEDS: CEFAZOLIN 2 GM in Sodium Chloride 0.9% 100 ML IVPB SCH (20:56)
[2023-09-30] MEDS: Magnesium 2 GM/50 ML(in water) 2 GM in Premix 1 BAG IVPB SCH (20:56)
[2023-09-30] MEDS: Famotidine/PF 20 mg/2ml Vial SLOW IVP SCH (20:56)
[2023-09-30] MEDS: Atorvastatin Calcium 20 MG TAB PO SCH (20:58)
[2023-09-30] MEDS: Fentanyl CADD 100 ML IV SCH (21:35)
[2023-09-30] MEDS: Albumin 25% 25 GM (100 mL) BOT IVPB PRN (23:03)
[2023-10-01 00:07] LABS: Hematocrit 26.9 % (42.0-52.0); Hemoglobin 8.6 g/dL (14.0-18.0); Mean Corpuscular Hemoglobin 32.2 pg (27.0-31.0); Mean Corpuscular Volume 100.7 fL (78.0-98.0); Mean Platelet Volume 10.4 fL (7.4-10.4); Platelet Count 170 10x3/uL (130-400); RBC Distribution Width 16.1 % (11.5-14.5); Red Blood Cell (RBC) Count 2.67 mill/uL (4.70-6.10)
[2023-10-01 00:20] LABS: Potassium 4.5 mmol/L (3.5-5.1)
[2023-10-01 00:26] LABS: ALT (SGPT) 6 U/L (8-55); AST (SGOT) 43 U/L (5-34); Albumin 3.4 g/dL (3.4-4.8); Alkaline Phosphatase 36 U/L (40-110); Anion Gap 22 mmol/L (10-20); BUN (Urea Nitrogen) 33 mg/dL (8.4-25.7); Bilirubin, Total 0.4 mg/dL (0.2-1.2); Calc. Creatinine Clearance 19 mL/min (70-130); Calcium 8.8 mg/dL (7.8-10.44); Carbon Dioxide 16 mmol/L (23-31); Chloride 106 mmol/L (98-107); Estimated GFR 10; Glucose 157 mg/dL (80-115); Potassium 4.6 mmol/L (3.5-5.1); Protein, Total 5.4 g/dL (5.8-8.1); Sodium 139 mmol/L (136-145)
[2023-10-01 00:48] LABS: Anisocytosis SLIGHT = 6-15 cells HPF (0-5); Band 18 % (5-11); Eosinophils 1 % (0-10); Hypochromia SLIGHT = 6-15 cells HPF (0-5); Lymphocytes 4 % (21-51); Macrocytosis SLIGHT = 6-15 cells HPF (0-5); Metamyelocyte 1 % (0-0); Monocytes 6 % (0-10); Neutrophil 70 % (42-75); Platelet Adequacy Comment Platelets Normal; Polychromasia SLIGHT = 2-3 cells HPF (0-2)
[2023-10-01] MEDS: CEFAZOLIN 2 GM in Sodium Chloride 0.9% 100 ML IVPB SCH (04:43)
[2023-10-01 05:01] LABS: INR-International Normal Ratio 1.3; Prothrombin Time 15.8 sec (12.0-14.7)
[2023-10-01 05:03] LABS: PTT 34.8 sec (22.9-36.1)
[2023-10-01 05:09] LABS: Hematocrit 24.1 % (42.0-52.0); Hemoglobin 7.9 g/dL (14.0-18.0); Mean Corpuscular HGB CONC 32.8 g/dL (32.0-36.0); Mean Corpuscular Hemoglobin 32.6 pg (27.0-31.0); Mean Corpuscular Volume 99.6 fL (78.0-98.0); Mean Platelet Volume 11.2 fL (7.4-10.4); Platelet Count 180 10x3/uL (130-400); RBC Distribution Width 15.9 % (11.5-14.5); Red Blood Cell (RBC) Count 2.42 mill/uL (4.70-6.10)
[2023-10-01 05:11] LABS: ALT (SGPT) 6 U/L (8-55); AST (SGOT) 45 U/L (5-34); Albumin 3.1 g/dL (3.4-4.8); Alkaline Phosphatase 34 U/L (40-110); Anion Gap 19 mmol/L (10-20); BUN (Urea Nitrogen) 34 mg/dL (8.4-25.7); Bilirubin, Total 0.3 mg/dL (0.2-1.2); Calc. Creatinine Clearance 19 mL/min (70-130); Calcium 8.4 mg/dL (7.8-10.44); Carbon Dioxide 17 mmol/L (23-31); Chloride 107 mmol/L (98-107); Estimated GFR 10; Glucose 116 mg/dL (80-115); Potassium 4.8 mmol/L (3.5-5.1); Protein, Total 5.1 g/dL (5.8-8.1); Sodium 138 mmol/L (136-145)
[2023-10-01 05:38] LABS: Anisocytosis SLIGHT = 6-15 cells HPF (0-5); Band 23 % (5-11); Hypochromia SLIGHT = 6-15 cells HPF (0-5); Lymphocytes 1 % (21-51); Monocytes 3 % (0-10); Neutrophil 72 % (42-75); Platelet Adequacy Comment Platelets Normal; Polychromasia SLIGHT = 2-3 cells HPF (0-2); Reactive Lymphocytes 1 % (0-10)
[2023-10-01 05:49] LABS: Actual Bicarbonate (HCO3a) 18.7 mEq/L (22-28); Base Excess (BEa) -5.3 mEq/L (-2.0 to +3.0); CO2 Tension 30.4 mmHg (35.0-45.0); Calcium, Ionized (arterial) 1.11 mmol/L (1.12-1.30); Carboxyhemoglobin (COHb) 0.7 gm% (0.0-3.0); Hematocrit-ABG 25 % (42.0-52.0); Hemoglobin (Hb) 8.6 g/dL (14.0-18.0); O2 Tension (PaO2), arterial 101.4 mmHg (> 80.0); Puncture Site Arterial Line; pH, Arterial 7.406 (7.35-7.45)
[2023-10-01 06:57] LABS: ALT (SGPT) 6 U/L (8-55); AST (SGOT) 46 U/L (5-34); Albumin 3.1 g/dL (3.4-4.8); Alkaline Phosphatase 35 U/L (40-110); Anion Gap 20 mmol/L (10-20); BUN (Urea Nitrogen) 35 mg/dL (8.4-25.7); Bilirubin, Total 0.3 mg/dL (0.2-1.2); Calc. Creatinine Clearance 19 mL/min (70-130); Calcium 8.5 mg/dL (7.8-10.44); Carbon Dioxide 17 mmol/L (23-31); Chloride 108 mmol/L (98-107); Estimated GFR 10; Globulin 2.2 g/dL (2.4-3.5); Glucose 146 mg/dL (80-115); Potassium 5.1 mmol/L (3.5-5.1); Protein, Total 5.3 g/dL (5.8-8.1); Sodium 140 mmol/L (136-145)
[2023-10-01 06:59] LABS: Hematocrit 24.8 % (42.0-52.0); Hemoglobin 8.2 g/dL (14.0-18.0); Mean Corpuscular HGB CONC 33.1 g/dL (32.0-36.0); Mean Corpuscular Hemoglobin 32.8 pg (27.0-31.0); Mean Corpuscular Volume 99.2 fL (78.0-98.0); Platelet Count 176 10x3/uL (130-400); RBC Distribution Width 16.2 % (11.5-14.5)
[2023-10-01 08:15] LABS: Anisocytosis MODERATE=16-30 cells HPF (0-5); Band 11 % (5-11); Burr Cells MODERATE= 6-15 cells HPF (0-1); Lymphocytes 1 % (21-51); Macrocytosis SLIGHT = 6-15 cells HPF (0-5); Monocytes 5 % (0-10); Neutrophil 83 % (42-75); Platelet Adequacy Comment Platelets Normal; Poikilocytosis MODERATE=16-30 cells HPF (0-5); Polychromasia SLIGHT = 2-3 cells HPF (0-2); Schistocytes SLIGHT = 2-5 cells HPF (0-1)
[2023-10-01] MEDS ORDERED: Aspirin 325 MG TAB PO SCH (09:00)
[2023-10-01] MEDS ORDERED: INSULIN REGULAR IN 0.9 % NACL 100 UNITS in Premix 1 BAG IVPB SCH (09:30)
[2023-10-01] MEDS: Aspirin Chewable 81 MG TAB PO SCH (09:37)
[2023-10-01] MEDS: Magnesium 2 GM/50 ML(in water) 2 GM in Premix 1 BAG IVPB SCH (09:40)
[2023-10-01 11:38] LABS: Actual Bicarbonate (HCO3a) 23.5 mEq/L (22-28); Analyzer IN Cardio OR; Base Excess (BEa) -2.9 mEq/L (-2.0 to +3.0); CO2 Tension 47.7 mmHg (35.0-45.0); Calcium, Ionized (arterial) 1.17 mmol/L (1.12-1.30); Carboxyhemoglobin (COHb) 0.6 gm% (0.0-3.0); Hematocrit-ABG 34 % (42.0-52.0); Hemoglobin (Hb) 11.7 g/dL (14.0-18.0); O2 Tension (PaO2), arterial 356.8 mmHg (> 80.0); Potassium - ABG Lab 4.68 mmol/L (3.70-5.30)
[2023-10-01 11:39] LABS: Actual Bicarbonate (HCO3a) 24.2 mEq/L (22-28); Analyzer IN Cardio OR; Base Excess (BEa) -0.8 mEq/L (-2.0 to +3.0); Calcium, Ionized (arterial) 0.93 mmol/L (1.12-1.30); Carboxyhemoglobin (COHb) 0.9 gm% (0.0-3.0); Hematocrit-ABG 21 % (42.0-52.0); Hemoglobin (Hb) 7.3 g/dL (14.0-18.0); O2 Tension (PaO2), arterial 268.6 mmHg (> 80.0); Potassium - ABG Lab 4.52 mmol/L (3.70-5.30); pH, Arterial 7.388 (7.35-7.45)
[2023-10-01 11:39] LABS: Actual Bicarbonate (HCO3a) 21.8 mEq/L (22-28); Analyzer IN Cardio OR; Base Excess (BEa) -3.7 mEq/L (-2.0 to +3.0); CO2 Tension 41.5 mmHg (35.0-45.0); Calcium, Ionized (arterial) 0.95 mmol/L (1.12-1.30); Carboxyhemoglobin (COHb) 0.9 gm% (0.0-3.0); Hematocrit-ABG 23 % (42.0-52.0); Hemoglobin (Hb) 7.8 g/dL (14.0-18.0); Potassium - ABG Lab 5.45 mmol/L (3.70-5.30); pH, Arterial 7.339 (7.35-7.45)
[2023-10-01 11:39] LABS: Analyzer IN Cardio OR; Base Excess (BEa) -3.6 mEq/L (-2.0 to +3.0); Carboxyhemoglobin (COHb) 0.3 gm% (0.0-3.0); Hematocrit-ABG 32 % (42.0-52.0); O2 Tension (PaO2), arterial 463.7 mmHg (> 80.0); Potassium - ABG Lab 4.78 mmol/L (3.70-5.30); pH, Arterial 7.337 (7.35-7.45)
[2023-10-01 11:39] LABS: Actual Bicarbonate (HCO3a) 22.2 mEq/L (22-28); Analyzer IN Cardio OR; Base Excess (BEa) -2.7 mEq/L (-2.0 to +3.0); Calcium, Ionized (arterial) 0.92 mmol/L (1.12-1.30); Carboxyhemoglobin (COHb) 1.2 gm% (0.0-3.0); Hematocrit-ABG 19 % (42.0-52.0); Hemoglobin (Hb) 6.4 g/dL (14.0-18.0); O2 Tension (PaO2), arterial 315.9 mmHg (> 80.0); Potassium - ABG Lab 5.53 mmol/L (3.70-5.30); pH, Arterial 7.374 (7.35-7.45)
[2023-10-01 11:40] LABS: Actual Bicarbonate (HCO3a) 23.4 mEq/L (22-28); Analyzer IN Cardio OR; CO2 Tension 43.3 mmHg (35.0-45.0); Calcium, Ionized (arterial) 0.97 mmol/L (1.12-1.30); Carboxyhemoglobin (COHb) 0.8 gm% (0.0-3.0); Hematocrit-ABG 22 % (42.0-52.0); Hemoglobin (Hb) 7.6 g/dL (14.0-18.0); O2 Tension (PaO2), arterial 287.1 mmHg (> 80.0); Potassium - ABG Lab 5.92 mmol/L (3.70-5.30); pH, Arterial 7.351 (7.35-7.45)
[2023-10-01 11:40] LABS: Actual Bicarbonate (HCO3a) 21.5 mEq/L (22-28); Analyzer IN Cardio OR; Base Excess (BEa) -3.8 mEq/L (-2.0 to +3.0); CO2 Tension 40.2 mmHg (35.0-45.0); Calcium, Ionized (arterial) 1.33 mmol/L (1.12-1.30); Carboxyhemoglobin (COHb) 0.9 gm% (0.0-3.0); Hematocrit-ABG 21 % (42.0-52.0); Hemoglobin (Hb) 7.3 g/dL (14.0-18.0); O2 Tension (PaO2), arterial 385.9 mmHg (> 80.0); Potassium - ABG Lab 4.93 mmol/L (3.70-5.30); pH, Arterial 7.347 (7.35-7.45)
[2023-10-01 11:40] LABS: Puncture Site Arterial Line
[2023-10-01 11:40] LABS: Puncture Site Arterial Line
[2023-10-01 11:41] LABS: Puncture Site Arterial Line
[2023-10-01 11:41] LABS: Puncture Site Arterial Line
[2023-10-01 11:41] LABS: Puncture Site Arterial Line
[2023-10-01 11:42] LABS: Puncture Site Arterial Line
[2023-10-01 11:42] LABS: Puncture Site Arterial Line
[2023-10-01] MEDS: Ondansetron PF 4 MG/2 ML Vial IVP PRN (12:18)
[2023-10-01 13:56] LABS: Hematocrit 26.5 % (42.0-52.0); Hemoglobin 8.7 g/dL (14.0-18.0); Mean Corpuscular HGB CONC 32.8 g/dL (32.0-36.0); Mean Corpuscular Hemoglobin 32.2 pg (27.0-31.0); Mean Corpuscular Volume 98.1 fL (78.0-98.0); Mean Platelet Volume 11.5 fL (7.4-10.4); Platelet Count 202 10x3/uL (130-400); RBC Distribution Width 16.1 % (11.5-14.5)
[2023-10-01 14:16] LABS: ALT (SGPT) 6 U/L (8-55); AST (SGOT) 53 U/L (5-34); Albumin 3.5 g/dL (3.4-4.8); Alkaline Phosphatase 45 U/L (40-110); Anion Gap 20 mmol/L (10-20); BUN (Urea Nitrogen) 13 mg/dL (8.4-25.7); Bilirubin, Total 0.5 mg/dL (0.2-1.2); Calc. Creatinine Clearance 44 mL/min (70-130); Calcium 8.8 mg/dL (7.8-10.44); Carbon Dioxide 22 mmol/L (23-31); Chloride 100 mmol/L (98-107); Estimated GFR 27; Globulin 2.8 g/dL (2.4-3.5); Glucose 111 mg/dL (80-115); Potassium 3.9 mmol/L (3.5-5.1); Protein, Total 6.3 g/dL (5.8-8.1); Sodium 138 mmol/L (136-145)
[2023-10-01 14:20] LABS: Anisocytosis SLIGHT = 6-15 cells HPF (0-5); Band 8 % (5-11); Eosinophils 1 % (0-10); Hypochromia SLIGHT = 6-15 cells HPF (0-5); Lymphocytes 1 % (21-51); Monocytes 6 % (0-10); Neutrophil 83 % (42-75); Nucleated RBC (Manual Ct) 1 % (0); Platelet Adequacy Comment Platelets Normal; Poikilocytosis SLIGHT = 6-15 cells HPF (0-5); Polychromasia SLIGHT = 2-3 cells HPF (0-2)
[2023-10-01 16:46] LABS: Magnesium 2.2 mg/dL (1.6-2.6)
[2023-10-01] MEDS: Acetaminophen 325 MG TAB PO PRN (16:48)
[2023-10-01] MEDS ORDERED: fentaNYL 50 mcg/mL 1 mL Vial SLOW IVP PRN (17:29)
[2023-10-01] MEDS: Insulin Regular, Human 100 UNIT/ML 10 ML VIAL SC PRN (19:12)
[2023-10-01] MEDS: traMADol HCl 50 MG TAB PO PRN (21:11)
[2023-10-01] MEDS: Morphine 4 MG/ML VIAL SLOW IVP PRN (23:44)
[2023-10-02 04:03] LABS: #Basophils 0.05 10x3/uL (0.0-0.2); %Basophils 0.2 % (0.0-1.0); %Eosinophils 0.4 % (0.0-10.0); %Monocytes 12.1 % (0.0-10.0); %Neutrophils 83.7 % (42.0-75.0); Hematocrit 21.6 % (42.0-52.0); Mean Corpuscular HGB CONC 32.4 g/dL (32.0-36.0); Mean Corpuscular Hemoglobin 32.6 pg (27.0-31.0); Mean Corpuscular Volume 100.5 fL (78.0-98.0); Mean Platelet Volume 11.2 fL (7.4-10.4); Platelet Count 192 10x3/uL (130-400); Red Blood Cell (RBC) Count 2.15 mill/uL (4.70-6.10)
[2023-10-02 04:48] LABS: ALT (SGPT) Less than 5 U/L (8-55); AST (SGOT) 38 U/L (5-34); Albumin 2.8 g/dL (3.4-4.8); Alkaline Phosphatase 43 U/L (40-110); Anion Gap 20 mmol/L (10-20); BUN (Urea Nitrogen) 24 mg/dL (8.4-25.7); Bilirubin, Total 0.3 mg/dL (0.2-1.2); Calc. Creatinine Clearance 26 mL/min (70-130); Calcium 8.4 mg/dL (7.8-10.44); Carbon Dioxide 21 mmol/L (23-31); Chloride 103 mmol/L (98-107); Estimated GFR 14; Globulin 2.8 g/dL (2.4-3.5); Glucose 164 mg/dL (80-115); Potassium 4.6 mmol/L (3.5-5.1); Protein, Total 5.6 g/dL (5.8-8.1); Sodium 139 mmol/L (136-145)
[2023-10-02] MEDS: Lidocaine 4% Patch TD SCH (07:51)
[2023-10-02] MEDS: Carvedilol 6.25 MG TAB PO SCH (07:52)
[2023-10-02] MEDS: DULoxetine 60 MG CAP PO SCH (07:52)
[2023-10-02] MEDS: Aspirin Chewable 81 MG TAB PO SCH (07:52)
[2023-10-02] MEDS: Calcitriol 0.25 MCG CAP PO SCH (07:52)
[2023-10-02] MEDS: Gabapentin 300 MG CAP PO SCH (07:53)
[2023-10-02] MEDS: Gentamicin TOPICAL Ointment 0.1% 15 gm Tube TOP SCH (08:39)
[2023-10-02] MEDS: Sucroferric Oxyhydroxide [Velphoro] 500 MG Tab.Chew PO SCH (09:10)
[2023-10-02] MEDS: Naloxegol 12.5 MG TAB PO SCH (09:17)
[2023-10-02] MEDS: Metoclopramide HCl 10 MG TAB PO PRN (09:17)
[2023-10-02] MEDS: Pantoprazole DR 40 MG TAB PO SCH (09:17)
[2023-10-02 11:54] LABS: Hematocrit 24.2 % (42.0-52.0); Hemoglobin 7.8 g/dL (14.0-18.0); Mean Corpuscular HGB CONC 32.2 g/dL (32.0-36.0); Mean Corpuscular Volume 99.2 fL (78.0-98.0); Platelet Count 194 10x3/uL (130-400); Red Blood Cell (RBC) Count 2.44 mill/uL (4.70-6.10)
[2023-10-02 12:11] LABS: Anion Gap 19 mmol/L (10-20); BUN (Urea Nitrogen) 29 mg/dL (8.4-25.7); Calc. Creatinine Clearance 23 mL/min (70-130); Calcium 8.5 mg/dL (7.8-10.44); Carbon Dioxide 21 mmol/L (23-31); Chloride 101 mmol/L (98-107); Estimated GFR 12; Glucose 206 mg/dL (80-115); Potassium 4.7 mmol/L (3.5-5.1); Sodium 136 mmol/L (136-145)
[2023-10-02] MEDS: Benzocaine/Menthol 1 LOZ LOZ PO PRN (21:03)
[2023-10-02] MEDS: Insulin Regular, Human 100 UNIT/ML 10 ML VIAL SC SCH (21:08)
[2023-10-02] MEDS: Latanoprost 0.005% Ophth Soln 2.5 ml Bottle EA EYE SCH (21:14)
[2023-10-02] MEDS: Transdermal Patch Removal TOP SCH (21:16)
[2023-10-03] MEDS: Heparin 10,000 UNITS/ 10 ML VIAL CATH SCH (04:16)
[2023-10-03 04:53] LABS: ALT (SGPT) Less than 5 U/L (8-55); AST (SGOT) 29 U/L (5-34); Albumin 2.7 g/dL (3.4-4.8); Alkaline Phosphatase 49 U/L (40-110); Anion Gap 17 mmol/L (10-20); BUN (Urea Nitrogen) 37 mg/dL (8.4-25.7); Bilirubin, Total 0.4 mg/dL (0.2-1.2); Calc. Creatinine Clearance 20 mL/min (70-130); Calcium 8.7 mg/dL (7.8-10.44); Carbon Dioxide 24 mmol/L (23-31); Chloride 103 mmol/L (98-107); Estimated GFR 10; Globulin 3.3 g/dL (2.4-3.5); Glucose 112 mg/dL (80-115); Potassium 4.3 mmol/L (3.5-5.1); Sodium 140 mmol/L (136-145)
[2023-10-03] MEDS: Sodium Chloride 0.9% 500 ML IV SCH (05:07)
[2023-10-03] MEDS: Albumin 25% 25 GM (100 mL) BOT IVPB SCH ×3 (05:07→09:58)
[2023-10-03 05:44] LABS: #Basophils 0.04 10x3/uL (0.0-0.2); %Basophils 0.3 % (0.0-1.0); %Eosinophils 0.7 % (0.0-10.0); %Lymphocytes 3.8 % (21.0-51.0); %Monocytes 16.6 % (0.0-10.0); %Neutrophils 77.8 % (42.0-75.0); Hematocrit 22.6 % (42.0-52.0); Hemoglobin 7.3 g/dL (14.0-18.0); Mean Corpuscular HGB CONC 32.3 g/dL (32.0-36.0); Mean Corpuscular Hemoglobin 31.3 pg (27.0-31.0); Mean Platelet Volume 11.7 fL (7.4-10.4); Platelet Count 210 10x3/uL (130-400); RBC Distribution Width 16.1 % (11.5-14.5); Red Blood Cell (RBC) Count 2.33 mill/uL (4.70-6.10)
[2023-10-03] MEDS: Bisacodyl 10 MG SUPP PR SCH (07:32)
[2023-10-03] MEDS ORDERED: Insulin Regular, Human 100 UNIT/ML 10 ML VIAL SC SCH ×2 (07:48→09:00)
[2023-10-03] MEDS: Insulin Regular, Human 100 UNIT/ML 10 ML VIAL SC SCH (09:40)
[2023-10-03 10:06] LABS: Hematocrit 21.3 % (42.0-52.0); Hemoglobin 6.9 g/dL (14.0-18.0); Mean Corpuscular HGB CONC 32.4 g/dL (32.0-36.0); Mean Corpuscular Hemoglobin 32.2 pg (27.0-31.0); Mean Corpuscular Volume 99.5 fL (78.0-98.0); Mean Platelet Volume 10.6 fL (7.4-10.4); Platelet Count 197 10x3/uL (130-400); RBC Distribution Width 16.2 % (11.5-14.5); Red Blood Cell (RBC) Count 2.14 mill/uL (4.70-6.10)
[2023-10-03] MEDS ORDERED: Heparin 10,000 UNITS/ 10 ML VIAL ONE (13:49)
[2023-10-03] MEDS: Insulin Glargine 30 UNITS/0.3 ML VIAL SC SCH (21:13)
[2023-10-03] MEDS: QUEtiapine 25 MG TAB PO PRN (21:21)
[2023-10-04 05:08] LABS: #Basophils 0.05 10x3/uL (0.0-0.2); %Basophils 0.4 % (0.0-1.0); %Eosinophils 2.5 % (0.0-10.0); %Lymphocytes 5.5 % (21.0-51.0); %Monocytes 15.4 % (0.0-10.0); %Neutrophils 75.4 % (42.0-75.0); Hematocrit 24.1 % (42.0-52.0); Mean Corpuscular HGB CONC 33.2 g/dL (32.0-36.0); Mean Corpuscular Hemoglobin 31.9 pg (27.0-31.0); Mean Platelet Volume 10.9 fL (7.4-10.4); Platelet Count 209 10x3/uL (130-400); RBC Distribution Width 17.4 % (11.5-14.5); Red Blood Cell (RBC) Count 2.51 mill/uL (4.70-6.10)
[2023-10-04 05:42] LABS: ALT (SGPT) Less than 5 U/L (8-55); AST (SGOT) 40 U/L (5-34); Albumin 3.4 g/dL (3.4-4.8); Alkaline Phosphatase 75 U/L (40-110); Anion Gap 18 mmol/L (10-20); BUN (Urea Nitrogen) 29 mg/dL (8.4-25.7); Bilirubin, Total 0.6 mg/dL (0.2-1.2); Calc. Creatinine Clearance 25 mL/min (70-130); Calcium 9.3 mg/dL (7.8-10.44); Carbon Dioxide 24 mmol/L (23-31); Chloride 100 mmol/L (98-107); Estimated GFR 13; Globulin 3.3 g/dL (2.4-3.5); Glucose 153 mg/dL (80-115); Potassium 4.2 mmol/L (3.5-5.1); Protein, Total 6.7 g/dL (5.8-8.1); Sodium 138 mmol/L (136-145)
[2023-10-04] MEDS: EPOETIN ALFA-EPBX (ESRD) 10,000 UNITS/ML VIAL SC SCH (12:21)
[2023-10-05 04:50] LABS: #Basophils 0.05 10x3/uL (0.0-0.2); %Basophils 0.4 % (0.0-1.0); %Eosinophils 3.7 % (0.0-10.0); %Lymphocytes 6.7 % (21.0-51.0); %Monocytes 14.8 % (0.0-10.0); %Neutrophils 73.8 % (42.0-75.0); Hemoglobin 7.7 g/dL (14.0-18.0); Mean Corpuscular HGB CONC 32.1 g/dL (32.0-36.0); Mean Corpuscular Hemoglobin 31.4 pg (27.0-31.0); Platelet Count 228 10x3/uL (130-400); RBC Distribution Width 16.9 % (11.5-14.5); Red Blood Cell (RBC) Count 2.45 mill/uL (4.70-6.10)
[2023-10-05 05:34] LABS: ALT (SGPT) Less than 5 U/L (8-55); AST (SGOT) 49 U/L (5-34); Alkaline Phosphatase 100 U/L (40-110); Anion Gap 17 mmol/L (10-20); BUN (Urea Nitrogen) 46 mg/dL (8.4-25.7); Bilirubin, Total 0.6 mg/dL (0.2-1.2); Calc. Creatinine Clearance 18 mL/min (70-130); Calcium 9.3 mg/dL (7.8-10.44); Carbon Dioxide 25 mmol/L (23-31); Chloride 100 mmol/L (98-107); Estimated GFR 9; Globulin 3.5 g/dL (2.4-3.5); Glucose 151 mg/dL (80-115); Potassium 4.3 mmol/L (3.5-5.1); Protein, Total 6.5 g/dL (5.8-8.1); Sodium 138 mmol/L (136-145)
[2023-10-06 04:32] LABS: #Basophils 0.05 10x3/uL (0.0-0.2); %Basophils 0.4 % (0.0-1.0); %Eosinophils 4.5 % (0.0-10.0); %Lymphocytes 7.5 % (21.0-51.0); %Monocytes 15.3 % (0.0-10.0); %Neutrophils 71.5 % (42.0-75.0); Hematocrit 24.5 % (42.0-52.0); Hemoglobin 7.8 g/dL (14.0-18.0); Mean Corpuscular HGB CONC 31.8 g/dL (32.0-36.0); Mean Corpuscular Hemoglobin 30.5 pg (27.0-31.0); Mean Corpuscular Volume 95.7 fL (78.0-98.0); Platelet Count 243 10x3/uL (130-400); RBC Distribution Width 16.2 % (11.5-14.5); Red Blood Cell (RBC) Count 2.56 mill/uL (4.70-6.10)
[2023-10-06 05:38] LABS: ALT (SGPT) Less than 5 U/L (8-55); AST (SGOT) 43 U/L (5-34); Albumin 2.9 g/dL (3.4-4.8); Alkaline Phosphatase 114 U/L (40-110); Anion Gap 18 mmol/L (10-20); BUN (Urea Nitrogen) 62 mg/dL (8.4-25.7); Bilirubin, Total 0.5 mg/dL (0.2-1.2); Calc. Creatinine Clearance 16 mL/min (70-130); Carbon Dioxide 24 mmol/L (23-31); Chloride 97 mmol/L (98-107); Estimated GFR 8; Globulin 3.6 g/dL (2.4-3.5); Glucose 114 mg/dL (80-115); Potassium 4.4 mmol/L (3.5-5.1); Protein, Total 6.5 g/dL (5.8-8.1); Sodium 135 mmol/L (136-145)
[2023-10-06 08:29] LABS: Iron 30 ug/dL (65-175); Iron Binding Capacity, Total 121 mcg/dL (261-462)
[2023-10-06 18:03] LABS: Hematocrit 28.9 % (42.0-52.0); Hemoglobin 9.4 g/dL (14.0-18.0)
[2023-10-06] MEDS: oxyCODONE/Acetaminophen 5 mg/325 mg Tablet PO PRN (20:04)
[2023-10-07 04:22] LABS: #Basophils 0.05 10x3/uL (0.0-0.2); %Basophils 0.4 % (0.0-1.0); %Eosinophils 3.5 % (0.0-10.0); %Lymphocytes 8.6 % (21.0-51.0); %Monocytes 14.5 % (0.0-10.0); %Neutrophils 71.6 % (42.0-75.0); Hematocrit 28.9 % (42.0-52.0); Hemoglobin 9.2 g/dL (14.0-18.0); Mean Corpuscular HGB CONC 31.8 g/dL (32.0-36.0); Mean Corpuscular Hemoglobin 31.3 pg (27.0-31.0); Mean Corpuscular Volume 98.3 fL (78.0-98.0); Mean Platelet Volume 10.8 fL (7.4-10.4); Platelet Count 258 10x3/uL (130-400); RBC Distribution Width 16.5 % (11.5-14.5); Red Blood Cell (RBC) Count 2.94 mill/uL (4.70-6.10)
[2023-10-07 04:40] LABS: ALT (SGPT) 5 U/L (8-55); AST (SGOT) 39 U/L (5-34); Albumin 2.9 g/dL (3.4-4.8); Alkaline Phosphatase 115 U/L (40-110); Anion Gap 14 mmol/L (10-20); BUN (Urea Nitrogen) 36 mg/dL (8.4-25.7); Bilirubin, Total 0.6 mg/dL (0.2-1.2); Calc. Creatinine Clearance 22 mL/min (70-130); Calcium 9.2 mg/dL (7.8-10.44); Carbon Dioxide 27 mmol/L (23-31); Chloride 101 mmol/L (98-107); Estimated GFR 11; Globulin 3.9 g/dL (2.4-3.5); Glucose 100 mg/dL (80-115); Potassium 4.4 mmol/L (3.5-5.1); Protein, Total 6.8 g/dL (5.8-8.1); Sodium 138 mmol/L (136-145)
[2023-10-07 05:46] VITALS: BMI 34.0
[2023-10-07 11:48] VITALS: BMI 34.0
[2023-10-08 04:10] LABS: #Basophils 0.04 10x3/uL (0.0-0.2); %Basophils 0.3 % (0.0-1.0); %Eosinophils 3.4 % (0.0-10.0); %Lymphocytes 6.9 % (21.0-51.0); %Monocytes 16.1 % (0.0-10.0); %Neutrophils 72.2 % (42.0-75.0); Hematocrit 27.6 % (42.0-52.0); Hemoglobin 8.9 g/dL (14.0-18.0); Mean Corpuscular HGB CONC 32.2 g/dL (32.0-36.0); Mean Corpuscular Hemoglobin 31.6 pg (27.0-31.0); Mean Corpuscular Volume 97.9 fL (78.0-98.0); Mean Platelet Volume 10.6 fL (7.4-10.4); Platelet Count 272 10x3/uL (130-400); RBC Distribution Width 16.1 % (11.5-14.5); Red Blood Cell (RBC) Count 2.82 mill/uL (4.70-6.10)
[2023-10-08 04:50] LABS: ALT (SGPT) 6 U/L (8-55); AST (SGOT) 43 U/L (5-34); Albumin 2.8 g/dL (3.4-4.8); Alkaline Phosphatase 110 U/L (40-110); Anion Gap 18 mmol/L (10-20); BUN (Urea Nitrogen) 55 mg/dL (8.4-25.7); Bilirubin, Total 0.6 mg/dL (0.2-1.2); Calc. Creatinine Clearance 16 mL/min (70-130); Calcium 9.5 mg/dL (7.8-10.44); Carbon Dioxide 24 mmol/L (23-31); Chloride 99 mmol/L (98-107); Estimated GFR 8; Globulin 3.8 g/dL (2.4-3.5); Glucose 81 mg/dL (80-115); Potassium 4.6 mmol/L (3.5-5.1); Protein, Total 6.6 g/dL (5.8-8.1); Sodium 136 mmol/L (136-145)
[2023-10-08 14:54] LABS: Magnesium 2.3 mg/dL (1.6-2.6); Phosphorus 4.6 mg/dL (2.3-4.7)
[2023-10-08] MEDS: EPOETIN ALFA-EPBX (ESRD) 10,000 UNITS/ML VIAL SC SCH (17:02)
[2023-10-09 05:05] VITALS: TEMP 97.5
[2023-10-09 05:47] LABS: #Basophils 0.04 10x3/uL (0.0-0.2); %Basophils 0.3 % (0.0-1.0); %Eosinophils 2.3 % (0.0-10.0); %Lymphocytes 6.3 % (21.0-51.0); %Monocytes 16.9 % (0.0-10.0); %Neutrophils 73.3 % (42.0-75.0); Hematocrit 29.5 % (42.0-52.0); Hemoglobin 9.3 g/dL (14.0-18.0); Mean Corpuscular HGB CONC 31.5 g/dL (32.0-36.0); Mean Corpuscular Hemoglobin 30.9 pg (27.0-31.0); Mean Platelet Volume 10.6 fL (7.4-10.4); Platelet Count 308 10x3/uL (130-400); RBC Distribution Width 15.9 % (11.5-14.5); Red Blood Cell (RBC) Count 3.01 mill/uL (4.70-6.10)
[2023-10-09 06:12] LABS: ALT (SGPT) 8 U/L (8-55); AST (SGOT) 43 U/L (5-34); Albumin 2.8 g/dL (3.4-4.8); Alkaline Phosphatase 115 U/L (40-110); Anion Gap 19 mmol/L (10-20); BUN (Urea Nitrogen) 40 mg/dL (8.4-25.7); Bilirubin, Total 0.6 mg/dL (0.2-1.2); Calc. Creatinine Clearance 20 mL/min (70-130); Calcium 9.4 mg/dL (7.8-10.44); Carbon Dioxide 25 mmol/L (23-31); Chloride 100 mmol/L (98-107); Estimated GFR 10; Globulin 3.8 g/dL (2.4-3.5); Glucose 144 mg/dL (80-115); Potassium 4.4 mmol/L (3.5-5.1); Protein, Total 6.6 g/dL (5.8-8.1); Sodium 140 mmol/L (136-145)
[2023-10-09 11:04] VITALS: BP 168/72
== END 2023-10-09 14:22 | DRG 233 ==
LOC: ERS 18:11 → ERHOLD 23:31 → OBSVTOIN 09-16 12:32 → 2SW 09-16 18:29 → CCU 09-17 05:37 → 2NO 09-20 20:52 → CCU 09-30 10:42 → 2NO 10-08 14:13
PROVIDERS: ADMIT Family Medicine; ATTEND Family Medicine
PROC: 30233J1 Transfusion of Nonautologous Serum Albumin into Peripheral Vein, Percutaneous Approach (ICD-10-PCS; 2023-09-16)
PROC: 06HY33Z Insertion of Infusion Device into Lower Vein, Percutaneous Approach (ICD-10-PCS; 2023-09-17)
PROC: 3E033XZ Introduction of Vasopressor into Peripheral Vein, Percutaneous Approach (ICD-10-PCS; 2023-09-17)
PROC: 3E03329 Introduction of Other Anti-infective into Peripheral Vein, Percutaneous Approach (ICD-10-PCS; 2023-09-17)
PROC: 5A0935A Assistance with Respiratory Ventilation, Less than 24 Consecutive Hours, High Flow/Velocity Cannula (ICD-10-PCS; 2023-09-17)
PROC: 5A09457 Assistance with Respiratory Ventilation, 24-96 Consecutive Hours, Continuous Positive Airway Pressure (ICD-10-PCS; 2023-09-20)
PROC: 4A023N7 Measurement of Cardiac Sampling and Pressure, Left Heart, Percutaneous Approach (ICD-10-PCS; 2023-09-24)
PROC: B2111ZZ Fluoroscopy of Multiple Coronary Arteries using Low Osmolar Contrast (ICD-10-PCS; 2023-09-24)
PROC: B2151ZZ Fluoroscopy of Left Heart using Low Osmolar Contrast (ICD-10-PCS; 2023-09-24)
PROC: 30233N1 Transfusion of Nonautologous Red Blood Cells into Peripheral Vein, Percutaneous Approach (ICD-10-PCS; 2023-09-26)
PROC: 0JH60XZ Insertion of Tunneled Vascular Access Device into Chest Subcutaneous Tissue and Fascia, Open Approach (ICD-10-PCS; 2023-09-27)
PROC: 02HV33Z Insertion of Infusion Device into Superior Vena Cava, Percutaneous Approach (ICD-10-PCS; 2023-09-27)
PROC: B5181ZA Fluoroscopy of Superior Vena Cava using Low Osmolar Contrast, Guidance (ICD-10-PCS; 2023-09-27)
PROC: 5A1D70Z Performance of Urinary Filtration, Intermittent, Less than 6 Hours Per Day (ICD-10-PCS; 2023-09-27)
PROC: B548ZZA Ultrasonography of Superior Vena Cava, Guidance (ICD-10-PCS; 2023-09-27)
PROC: 02100Z9 Bypass Coronary Artery, One Artery from Left Internal Mammary, Open Approach (ICD-10-PCS; principal; 2023-09-30)
PROC: 021109W Bypass Coronary Artery, Two Arteries from Aorta with Autologous Venous Tissue, Open Approach (ICD-10-PCS; 2023-09-30)
PROC: 06BQ4ZZ Excision of Left Saphenous Vein, Percutaneous Endoscopic Approach (ICD-10-PCS; 2023-09-30)
PROC: 5A02110 Assistance with Cardiac Output using Balloon Pump, Intermittent (ICD-10-PCS; 2023-09-30)
PROC: 5A1221Z Performance of Cardiac Output, Continuous (ICD-10-PCS; 2023-09-30)
PROC: 4A133R1 Monitoring of Arterial Saturation, Peripheral, Percutaneous Approach (ICD-10-PCS; 2023-09-30)
DX: I13.2 Hypertensive heart and chronic kidney disease with heart failure and with stage 5 chronic kidney disease, or end stage renal disease (principal); A41.9 Sepsis, unspecified organism; I21.A1 Myocardial infarction type 2; I50.23 Acute on chronic systolic (congestive) heart failure; N18.6 End stage renal disease; J96.01 Acute respiratory failure with hypoxia; D62 Acute posthemorrhagic anemia; N25.81 Secondary hyperparathyroidism of renal origin; E87.1 Hypo-osmolality and hyponatremia; F11.20 Opioid dependence, uncomplicated; K56.7 Ileus, unspecified; I42.0 Dilated cardiomyopathy; E88.09 Other disorders of plasma-protein metabolism, not elsewhere classified; I25.10 Atherosclerotic heart disease of native coronary artery without angina pectoris; Z66 Do not resuscitate; E11.22 Type 2 diabetes mellitus with diabetic chronic kidney disease; I44.7 Left bundle-branch block, unspecified; R41.0 Disorientation, unspecified; M54.50 Low back pain, unspecified; E87.5 Hyperkalemia; G89.29 Other chronic pain; R53.81 Other malaise; E11.65 Type 2 diabetes mellitus with hyperglycemia; G89.11 Acute pain due to trauma; D63.1 Anemia in chronic kidney disease; E11.40 Type 2 diabetes mellitus with diabetic neuropathy, unspecified; M51.36 Other intervertebral disc degeneration, lumbar region; R79.89 Other specified abnormal findings of blood chemistry; W18.30XA Fall on same level, unspecified, initial encounter; Y92.046 Garden or yard of boarding-house as the place of occurrence of the external cause; Z98.1 Arthrodesis status
CPT/HCPCS: 36415; 36416; 36430; 36600; 70450; 71045; 72125; 74018; 74176; 74177; 80053; 80061; 80202; 82010; 82274; 82728; 82805; 83036; 83540; 83550; 83605; 83735; 83880; 84100; 84145; 84443; 84484; 85025; 85060; 85610; 85730; 86704; 86706; 86803; 86850; 86900; 86901; 87040; 87070; 87205; 87340; 89051; 90935; 90945; 93005; 93010; 93306; 93458; 93798; 94002; 94003; 96374; 96375; 97139; 99152; A4311; A4648; A6258; C1751; C1752; C1769; C1887; C1894; C9113; G0257; J0171; J0665; J1100; J1170; J1200; J1630; J1642; J1644; J1815; J2001; J2060; J2150; J2250; J2270; J2272; J2405; J2440; J2543; J2704; J2720; J2765; J3010; J3370; J3370-JW; J3475; J3480; J3490; J7030; J7050; P9016; P9045; P9047; Q5105; Q9967; S0017; S0028

== ENCOUNTER 2023-10-14 16:23 | Inpatient (IN) | payer MEDICARE, BC ==
[2023-10-14] MEDS ORDERED: Cefepime 2 GM VIAL ONE (19:22)
[2023-10-14] MEDS ORDERED: Dextrose 5% in Water 1,000 ML IV PRN (20:14)
[2023-10-14] MEDS ORDERED: Glucagon 1 MG/ML KIT IM PRN (20:14)
[2023-10-14] MEDS ORDERED: Dextrose 50% Abboject 50 ML SYRINGE SLOW IVP PRN (20:14)
[2023-10-14] MEDS ORDERED: Ondansetron ODT 4 MG TAB PO PRN (20:14)
[2023-10-14] MEDS ORDERED: Sodium Chloride 0.9% 100 ML ONE (20:22)
[2023-10-14] MEDS ORDERED: HumaLOG 300 UNITS/3 ML VIAL SC PRN ×2 (20:24)
[2023-10-14] MEDS ORDERED: Insulin Lispro 100 UNIT/ML 10 ML VIAL SC PRN (20:45)
[2023-10-14] MEDS ORDERED: Metoclopramide HCl 10 MG TAB PO PRN (21:21)
[2023-10-14] MEDS ORDERED: Bisacodyl 10 MG SUPP ONE (21:37)
[2023-10-14] MEDS: Bisacodyl 10 MG SUPP PR SCH (21:59)
[2023-10-15] MEDS ORDERED: Carvedilol 6.25 MG TAB ONE ×2 (00:58→08:48)
[2023-10-15] MEDS: Vancomycin (BATCH) 2 GM in Premix 1 BAG IVPB SCH (01:30)
[2023-10-15] MEDS: Carvedilol 6.25 MG TAB PO SCH ×2 (01:31→08:54)
[2023-10-15 02:55] LABS: #Basophils 0.07 10x3/uL (0.0-0.2); %Basophils 0.4 % (0.0-1.0); %Eosinophils 3.6 % (0.0-10.0); %Lymphocytes 3.9 % (21.0-51.0); %Monocytes 16.7 % (0.0-10.0); %Neutrophils 74.7 % (42.0-75.0); Hematocrit 25.7 % (42.0-52.0); Hemoglobin 8.4 g/dL (14.0-18.0); Mean Corpuscular HGB CONC 32.7 g/dL (32.0-36.0); Mean Corpuscular Hemoglobin 31.2 pg (27.0-31.0); Mean Corpuscular Volume 95.5 fL (78.0-98.0); Mean Platelet Volume 10.4 fL (7.4-10.4); Platelet Count 321 10x3/uL (130-400); RBC Distribution Width 15.3 % (11.5-14.5); Red Blood Cell (RBC) Count 2.69 mill/uL (4.70-6.10)
[2023-10-15 04:07] LABS: Carbon Dioxide 26 mmol/L (23-31); Chloride 96 mmol/L (98-107); Potassium 4.6 mmol/L (3.5-5.1); Sodium 135 mmol/L (136-145)
[2023-10-15 04:08] LABS: BUN (Urea Nitrogen) 47 mg/dL (8.4-25.7); Calc. Creatinine Clearance 0 mL/min (70-130); Estimated GFR 10
[2023-10-15 04:10] LABS: Bilirubin, Total 0.4 mg/dL (0.2-1.2); Calcium 9.1 mg/dL (7.6-10.4); Glucose 111 mg/dL (80-115)
[2023-10-15 04:11] LABS: Albumin 2.4 g/dL (3.4-4.8); Globulin 4.1 g/dL (2.4-3.5); Protein, Total 6.5 g/dL (5.8-8.1)
[2023-10-15 04:13] LABS: Alkaline Phosphatase 94 U/L (40-110); Anion Gap 18 mmol/L (10-20)
[2023-10-15 04:14] LABS: ALT (SGPT) 8 U/L (8-55); AST (SGOT) 28 U/L (5-34); Phosphorus 4.4 mg/dL (2.3-4.7)
[2023-10-15 04:26] VITALS: BMI 34.9
[2023-10-15 04:26] LABS: Magnesium 1.9 mg/dL (1.6-2.6)
[2023-10-15] MEDS ORDERED: Vancomycin Dialysis Sliding Scale (Wt > 99) FS SCH (04:30)
[2023-10-15] MEDS ORDERED: Buprenorphine 2mg/Naloxone 0.5mg per 1 FILM SL SCH (04:45)
[2023-10-15] MEDS ORDERED: Heparin 10,000 UNITS/ 10 ML VIAL ONE (07:08)
[2023-10-15] MEDS ORDERED: Sacubitril 49 MG/Valsartan 51 MG TABLET ONE (08:47)
[2023-10-15] MEDS ORDERED: Gabapentin 300 MG CAP ONE (08:57)
[2023-10-15] MEDS ORDERED: Pantoprazole DR 40 MG TAB ONE (08:57)
[2023-10-15] MEDS ORDERED: DULoxetine 60 MG CAP ONE (08:57)
[2023-10-15] MEDS: Sacubitril 24MG/Valsartan 26 MG TAB PO SCH (08:59)
[2023-10-15] MEDS: Insulin Glargine 30 UNITS/0.3 ML VIAL SC SCH (08:59)
[2023-10-15] MEDS: Pantoprazole DR 40 MG TAB PO SCH (08:59)
[2023-10-15] MEDS: Calcitriol 0.25 MCG CAP PO SCH (08:59)
[2023-10-15] MEDS: Gabapentin 300 MG CAP PO SCH (08:59)
[2023-10-15] MEDS: DULoxetine 60 MG CAP PO SCH (08:59)
[2023-10-15] MEDS ORDERED: Heparin 1,000 UNITS/ML VIAL ONE (10:14)
[2023-10-15] MEDS ORDERED: EPINEPHrine 1 MG/ML VIAL ONE (10:35)
[2023-10-15] MEDS ORDERED: Bupivacaine PF 0.5% 30 ML VIAL ONE (10:35)
[2023-10-15] MEDS ORDERED: Vancomycin HCl 500 MG VIAL ONE (10:35)
[2023-10-15] MEDS ORDERED: Etomidate 40 MG (20 mL) VIAL ONE (10:52)
[2023-10-15] MEDS ORDERED: Lidocaine 2% PF 5 ML VIAL ONE (11:09)
[2023-10-15] MEDS ORDERED: PHENYLEPHRINE-NS 100 MCG/ML 10 ML SYRINGE ONE (11:41)
[2023-10-15] MEDS ORDERED: Rocuronium Bromide 10 MG/ML (10ML VIAL) ONE (11:41)
[2023-10-15] MEDS ORDERED: SUCCINYLCHOLINE/SOD CL,ISO/PF 200 MG/10 ML SYRINGE FS ONE (11:41)
[2023-10-15] MEDS ORDERED: Ondansetron PF 4 MG/2 ML Vial ONE (11:49)
[2023-10-15] MEDS ORDERED: SUGAMMADEX SODIUM 200 MG/2 ML VIAL ONE (12:02)
[2023-10-15] MEDS ORDERED: Vancomycin 1 GM in Premix 1 BAG IVPB SCH (12:45)
[2023-10-15 20:57] LABS: Vancomycin, Trough 22.5 ug/mL
[2023-10-15] MEDS: Atorvastatin Calcium 20 MG TAB PO SCH (21:46)
[2023-10-15] MEDS: Cefepime 1 GM in Sodium Chloride 0.9% 100 ML IVPB SCH (21:46)
[2023-10-15] MEDS: oxyCODONE/Acetaminophen 5 mg/325 mg Tablet PO PRN (21:47)
[2023-10-15] MEDS: Latanoprost 0.005% Ophth Soln 2.5 ml Bottle EA EYE SCH (21:47)
[2023-10-15] MEDS: Vancomycin HCl 500 MG in Sodium Chloride 0.9% 100 ML IVPB SCH (22:39)
[2023-10-16 04:54] LABS: #Basophils 0.13 10x3/uL (0.0-0.2); %Basophils 0.9 % (0.0-1.0); %Eosinophils 5.4 % (0.0-10.0); %Lymphocytes 4.1 % (21.0-51.0); %Neutrophils 73.7 % (42.0-75.0); Hematocrit 28.1 % (42.0-52.0); Hemoglobin 8.6 g/dL (14.0-18.0); Mean Corpuscular HGB CONC 30.6 g/dL (32.0-36.0); Mean Corpuscular Hemoglobin 29.6 pg (27.0-31.0); Mean Corpuscular Volume 96.6 fL (78.0-98.0); Mean Platelet Volume 10.5 fL (7.4-10.4); Platelet Count 318 10x3/uL (130-400); RBC Distribution Width 15.4 % (11.5-14.5); Red Blood Cell (RBC) Count 2.91 mill/uL (4.70-6.10)
[2023-10-16 05:05] LABS: Phosphorus 3.6 mg/dL (2.3-4.7)
[2023-10-16 05:07] LABS: ALT (SGPT) 10 U/L (8-55); AST (SGOT) 27 U/L (5-34); Albumin 2.4 g/dL (3.4-4.8); Alkaline Phosphatase 98 U/L (40-110); Anion Gap 14 mmol/L (10-20); BUN (Urea Nitrogen) 27 mg/dL (8.4-25.7); Bilirubin, Total 0.4 mg/dL (0.2-1.2); Calc. Creatinine Clearance 27 mL/min (70-130); Carbon Dioxide 26 mmol/L (23-31); Chloride 100 mmol/L (98-107); Estimated GFR 16; Glucose 107 mg/dL (80-115); Magnesium 1.9 mg/dL (1.6-2.6); Potassium 4.2 mmol/L (3.5-5.1); Protein, Total 6.4 g/dL (5.8-8.1); Sodium 136 mmol/L (136-145)
[2023-10-16] MEDS: Mineral Oil ENEMA PR SCH ×2 (12:39→12:46)
[2023-10-16] MEDS: Insulin Lispro 100 UNIT/ML 10 ML VIAL SC PRN (12:46)
[2023-10-16 13:33] VITALS: BMI 35.4
[2023-10-16] MEDS: Polyethylene Glycol 3350 17 GM Packet PO SCH (18:01)
[2023-10-17 04:21] LABS: %Basophils 0.8 % (0.0-1.0); %Eosinophils 5.7 % (0.0-10.0); %Lymphocytes 7.7 % (21.0-51.0); %Monocytes 14.6 % (0.0-10.0); %Neutrophils 70.5 % (42.0-75.0); Hematocrit 24.1 % (42.0-52.0); Hemoglobin 7.5 g/dL (14.0-18.0); Mean Corpuscular HGB CONC 31.1 g/dL (32.0-36.0); Mean Corpuscular Hemoglobin 29.9 pg (27.0-31.0); Mean Platelet Volume 10.4 fL (7.4-10.4); Platelet Count 285 10x3/uL (130-400); RBC Distribution Width 15.6 % (11.5-14.5); Red Blood Cell (RBC) Count 2.51 mill/uL (4.70-6.10)
[2023-10-17 04:38] LABS: ALT (SGPT) 7 U/L (8-55); AST (SGOT) 21 U/L (5-34); Albumin 2.3 g/dL (3.4-4.8); Alkaline Phosphatase 91 U/L (40-110); Anion Gap 12 mmol/L (10-20); BUN (Urea Nitrogen) 41 mg/dL (8.4-25.7); Bilirubin, Total 0.4 mg/dL (0.2-1.2); Calc. Creatinine Clearance 20 mL/min (70-130); Carbon Dioxide 23 mmol/L (23-31); Chloride 100 mmol/L (98-107); Estimated GFR 11; Globulin 3.9 g/dL (2.4-3.5); Glucose 108 mg/dL (80-115); Magnesium 1.9 mg/dL (1.6-2.6); Potassium 4.4 mmol/L (3.5-5.1); Protein, Total 6.2 g/dL (5.8-8.1); Sodium 131 mmol/L (136-145)
[2023-10-17 04:39] LABS: Phosphorus 4.2 mg/dL (2.3-4.7)
[2023-10-17 07:13] LABS: Hematocrit 24.5 % (42.0-52.0); Hemoglobin 7.6 g/dL (14.0-18.0); Platelet Count 281 10x3/uL (130-400)
[2023-10-17] MEDS ORDERED: Piperacillin/Tazobactam 3.375 GM in Sodium Chloride 0.9% 100 ML IVPB SCH ×2 (11:00→16:00)
[2023-10-17] MEDS: Piperacillin/Tazobactam 3.375 GM in Sodium Chloride 0.9% 100 ML IVPB SCH ×2 (12:04→15:56)
[2023-10-17] MEDS ORDERED: Piperacillin/Tazobactam 2.25 GM in Sodium Chloride 0.9% 100 ML IVPB SCH ×2 (13:00→14:00)
[2023-10-17] MEDS: EPOETIN ALFA-EPBX (ESRD) 10,000 UNITS/ML VIAL SC SCH (13:04)
[2023-10-17] MEDS: Polyethylene Glycol 3350 17 GM Packet PO SCH (13:05)
[2023-10-17] MEDS ORDERED: Polyethylene Glycol 3350 17 GM Packet PO PRN (13:45)
[2023-10-17] MEDS: Gentamicin Sulfate 120 MG in Premix 1 BAG IVPB SCH (18:33)
[2023-10-17 19:36] VITALS: BP 119/56; TEMP 97.7
== END 2023-10-17 21:30 | DRG 856 ==
LOC: ERS 16:23 → SURG A 18:50 → ERHOLD 19:31 → SURG A 10-15 09:38 → 2NO 10-15 19:33
PROVIDERS: ADMIT Emergency Medicine; ATTEND Emergency Medicine
PROC: 3E033XZ Introduction of Vasopressor into Peripheral Vein, Percutaneous Approach (ICD-10-PCS; principal; 2023-10-15)
PROC: 0KD Muscles, Extraction (ICD-10-PCS; 2023-10-15)
PROC: 0W980ZZ Drainage of Chest Wall, Open Approach (ICD-10-PCS; 2023-10-15)
PROC: 5A09357 Assistance with Respiratory Ventilation, Less than 24 Consecutive Hours, Continuous Positive Airway Pressure (ICD-10-PCS; 2023-10-16)
DX: T81.41XA Infection following a procedure, superficial incisional surgical site, initial encounter (principal); N18.6 End stage renal disease; I50.22 Chronic systolic (congestive) heart failure; I13.2 Hypertensive heart and chronic kidney disease with heart failure and with stage 5 chronic kidney disease, or end stage renal disease; E87.1 Hypo-osmolality and hyponatremia; E87.20 Acidosis, unspecified; E11.22 Type 2 diabetes mellitus with diabetic chronic kidney disease; D63.1 Anemia in chronic kidney disease; E87.5 Hyperkalemia; E83.39 Other disorders of phosphorus metabolism; E78.00 Pure hypercholesterolemia, unspecified; I25.10 Atherosclerotic heart disease of native coronary artery without angina pectoris; E11.65 Type 2 diabetes mellitus with hyperglycemia; K59.00 Constipation, unspecified; Z99.2 Dependence on renal dialysis; Z79.82 Long term (current) use of aspirin; Z79.899 Other long term (current) drug therapy; Z79.4 Long term (current) use of insulin; Z98.890 Other specified postprocedural states
CPT/HCPCS: 36415; 36416; 71260; 80053; 80202; 83605; 83735; 84100; 85025; 86850; 86900; 86901; 87040; 87070; 87077; 87186; 87205; 90935; 93005; 96374; 97139; G0257; J0171; J0665; J0692; J1580; J1644; J1815; J2001; J2405; J2543; J3370; J3490; Q5105; Q9967

== ENCOUNTER 2024-01-05 15:38 | Emergency (ER) | payer MEDICARE, BC ==
[2024-01-05] MEDS ORDERED: Acetaminophen 500 MG TAB ONE (20:04)
[2024-01-05 20:38] LABS: #Basophils 0.08 10x3/uL (0.0-0.2); %Basophils 0.6 % (0.0-1.0); %Eosinophils 2.7 % (0.0-10.0); %Lymphocytes 7.3 % (21.0-51.0); %Monocytes 11.6 % (0.0-10.0); %Neutrophils 77.6 % (42.0-75.0); Hematocrit 40.8 % (42.0-52.0); Hemoglobin 12.3 g/dL (14.0-18.0); Mean Corpuscular HGB CONC 30.1 g/dL (32.0-36.0); Mean Corpuscular Hemoglobin 27.3 pg (27.0-31.0); Mean Corpuscular Volume 90.5 fL (78.0-98.0); Mean Platelet Volume 11.1 fL (7.4-10.4); Platelet Count 231 10x3/uL (130-400); RBC Distribution Width 16.7 % (11.5-14.5); Red Blood Cell (RBC) Count 4.51 mill/uL (4.70-6.10)
[2024-01-05 21:04] LABS: ALT (SGPT) 7 U/L (8-55); AST (SGOT) 23 U/L (5-34); Albumin 3.4 g/dL (3.4-4.8); Alkaline Phosphatase 93 U/L (40-110); Anion Gap 18 mmol/L (10-20); BUN (Urea Nitrogen) 86 mg/dL (8.4-25.7); Bilirubin, Total 0.4 mg/dL (0.2-1.2); Calc. Creatinine Clearance 0 mL/min (70-130); Calcium 9.9 mg/dL (7.8-10.44); Carbon Dioxide 23 mmol/L (23-31); Chloride 95 mmol/L (98-107); Estimated GFR 7; Globulin 4.7 g/dL (2.4-3.5); Glucose 168 mg/dL (80-115); Potassium 5.1 mmol/L (3.5-5.1); Protein, Total 8.1 g/dL (5.8-8.1); Sodium 131 mmol/L (136-145)
== END 2024-01-05 21:37 | disposition home or self-care (01) ==
LOC: ERS 15:38
DX: S09.90XA Unspecified injury of head, initial encounter (principal); S43.401A Unspecified sprain of right shoulder joint, initial encounter; S80.01XA Contusion of right knee, initial encounter; I13.2 Hypertensive heart and chronic kidney disease with heart failure and with stage 5 chronic kidney disease, or end stage renal disease; E11.22 Type 2 diabetes mellitus with diabetic chronic kidney disease; N18.6 End stage renal disease; I50.9 Heart failure, unspecified; Z55.6 Problems related to health literacy; Z99.2 Dependence on renal dialysis; W05.0XXA Fall from non-moving wheelchair, initial encounter; Y93.B2 Activity, push-ups, pull-ups, sit-ups
CPT/HCPCS: 70450; 72125; 80053; 85025; 93005

== ENCOUNTER 2025-02-02 10:37 | Inpatient (IN) | payer BC, MEDICARE ==
[2025-02-02 12:06] LABS: #Basophils 0.10 10x3/uL (0.0-0.2); #Eosinophils 0.24 10x3/uL (0.0-0.7); #Monocytes 0.94 10x3/uL (0.11-0.59); #Neutrophils 8.02 10x3/uL (1.40-6.50); %Basophils 1.0 % (0.0-1.0); %Eosinophils 2.3 % (0.0-10.0); %Lymphocytes 9.0 % (21.0-51.0); %Monocytes 9.1 % (0.0-10.0); %Neutrophils 78.1 % (42.0-75.0); Hematocrit 32.7 % (42.0-52.0); Hemoglobin 10.0 g/dL (14.0-18.0); Mean Corpuscular Hemoglobin 29.1 pg (27.0-31.0); Mean Corpuscular Volume 95.1 fL (78.0-98.0); Platelet Count 175 10x3/uL (130-400); Red Blood Cell (RBC) Count 3.44 mill/uL (4.70-6.10); White Blood Cell (WBC) Count 10.28 10x3/uL (4.8-10.8)
[2025-02-02] MEDS ORDERED: Ondansetron PF 4 MG/2 ML Vial ONE (12:13)
[2025-02-02 12:23] LABS: INR-International Normal Ratio 1.1; Prothrombin Time 14.0 sec (12.0-14.7)
[2025-02-02 12:24] LABS: PTT 32.0 sec (22.9-36.1)
[2025-02-02 12:31] LABS: ALT (SGPT) 22 U/L (Less than 45); AST (SGOT) 37 U/L (11-34); Albumin 4.0 g/dL (3.1-4.5); Alkaline Phosphatase 115 U/L (40-110); Anion Gap 18 mmol/L (10-20); BUN (Urea Nitrogen) 50 mg/dL (8.4-25.7); Bilirubin, Total 0.4 mg/dL (0.3-1.2); Calc. Creatinine Clearance 0 mL/min (70-130); Calcium 10.0 mg/dL (7.8-10.44); Carbon Dioxide 29 mmol/L (23-31); Chloride 94 mmol/L (98-107); Globulin 4.3 g/dL (2.4-3.5); Glucose 207 mg/dL (80-115); Potassium 5.3 mmol/L (3.5-5.1); Sodium 136 mmol/L (136-145)
[2025-02-02] MEDS ORDERED: Cefepime 2 GM VIAL ONE (13:52)
[2025-02-02] MEDS ORDERED: Dextrose 50% Abboject 50 ML SYRINGE SLOW IVP PRN (15:08)
[2025-02-02] MEDS ORDERED: Senokot S 8.6-50 MG TAB PO PRN (15:08)
[2025-02-02] MEDS ORDERED: Melatonin 3 MG TAB PO PRN (15:08)
[2025-02-02] MEDS ORDERED: Glucagon 1 MG/ML KIT IM PRN (15:08)
[2025-02-02] MEDS ORDERED: Electrolyte Replacement Protocol 1 EACH FS SCH (15:15)
[2025-02-02 16:29] VITALS: BMI 36.3
[2025-02-02] MEDS ORDERED: PNEUMOC 20-VAL CONJ-DIP CRM/PF 0.5 ML SYRINGE IM ONE (17:15)
[2025-02-02] MEDS: Acetaminophen 325 MG TAB PO PRN (21:37)
[2025-02-02] MEDS: Pregabalin 50 MG CAP PO SCH (21:38)
[2025-02-02] MEDS: metroNIDAZOLE 500 MG TAB PO SCH (21:38)
[2025-02-03 05:01] LABS: #Basophils 0.06 10x3/uL (0.0-0.2); #Eosinophils 0.30 10x3/uL (0.0-0.7); #Monocytes 1.30 10x3/uL (0.11-0.59); #Neutrophils 7.62 10x3/uL (1.40-6.50); %Basophils 0.6 % (0.0-1.0); %Eosinophils 3.0 % (0.0-10.0); %Lymphocytes 8.2 % (21.0-51.0); %Monocytes 12.8 % (0.0-10.0); %Neutrophils 75.1 % (42.0-75.0); Hematocrit 29.3 % (42.0-52.0); Hemoglobin 9.3 g/dL (14.0-18.0); Mean Corpuscular Hemoglobin 29.5 pg (27.0-31.0); Mean Corpuscular Volume 93.0 fL (78.0-98.0); Platelet Count 170 10x3/uL (130-400); Red Blood Cell (RBC) Count 3.15 mill/uL (4.70-6.10); White Blood Cell (WBC) Count 10.14 10x3/uL (4.8-10.8)
[2025-02-03 05:18] LABS: Albumin 3.1 g/dL (3.1-4.5); Anion Gap 17 mmol/L (10-20); BUN (Urea Nitrogen) 60 mg/dL (8.4-25.7); BUN/Creatinine Ratio 7.41; Calc. Creatinine Clearance 13 mL/min (70-130); Calcium 9.6 mg/dL (7.8-10.44); Carbon Dioxide 30 mmol/L (23-31); Chloride 96 mmol/L (98-107); Glucose 200 mg/dL (80-115); Potassium 4.1 mmol/L (3.5-5.1); Sodium 139 mmol/L (136-145)
[2025-02-03] MEDS: Folic Acid/Vit B Comp W-C PO SCH (08:40)
[2025-02-03] MEDS: Calcitriol 0.25 MCG CAP PO SCH (08:41)
[2025-02-03] MEDS: Carvedilol 6.25 MG TAB PO SCH (08:41)
[2025-02-03] MEDS: Pantoprazole 40 MG DR.TAB PO SCH (08:41)
[2025-02-03] MEDS ORDERED: Carvedilol 6.25 MG TAB PO SCH (09:00)
[2025-02-03 09:48] LABS: HBSAB Concentration 137.17 mIU/mL; Hep B Core Total Ab NONREACTIVE (NonReactive); Hep B Core Total Index 0.11 S/CO (0-0.79); Hep B Surf Ag NONREACTIVE S/CO (NonReactive); Hep C IgG Ab NONREACTIVE S/CO (NonReactive); Hep C Index 0.10 S/CO (0-0.79)
[2025-02-03] MEDS: diphenhydrAMINE 25 MG CAP PO PRN (10:15)
[2025-02-04 04:21] LABS: #Basophils 0.09 10x3/uL (0.0-0.2); #Eosinophils 0.26 10x3/uL (0.0-0.7); #Monocytes 1.18 10x3/uL (0.11-0.59); #Neutrophils 7.61 10x3/uL (1.40-6.50); %Basophils 0.9 % (0.0-1.0); %Eosinophils 2.6 % (0.0-10.0); %Lymphocytes 9.0 % (21.0-51.0); %Monocytes 11.7 % (0.0-10.0); %Neutrophils 75.2 % (42.0-75.0); Hematocrit 30.1 % (42.0-52.0); Hemoglobin 9.2 g/dL (14.0-18.0); Mean Corpuscular Hemoglobin 28.7 pg (27.0-31.0); Mean Corpuscular Volume 93.8 fL (78.0-98.0); Platelet Count 162 10x3/uL (130-400); Red Blood Cell (RBC) Count 3.21 mill/uL (4.70-6.10); White Blood Cell (WBC) Count 10.11 10x3/uL (4.8-10.8)
[2025-02-04 05:18] LABS: ALT (SGPT) 13 U/L (Less than 45); AST (SGOT) 27 U/L (11-34); Albumin 3.1 g/dL (3.1-4.5); Alkaline Phosphatase 87 U/L (40-110); Anion Gap 17 mmol/L (10-20); BUN (Urea Nitrogen) 44 mg/dL (8.4-25.7); Bilirubin, Total 0.4 mg/dL (0.3-1.2); Calc. Creatinine Clearance 19 mL/min (70-130); Calcium 9.1 mg/dL (7.8-10.44); Carbon Dioxide 30 mmol/L (23-31); Chloride 98 mmol/L (98-107); Globulin 3.8 g/dL (2.4-3.5); Glucose 187 mg/dL (80-115); Potassium 4.1 mmol/L (3.5-5.1); Sodium 141 mmol/L (136-145)
[2025-02-04 16:03] VITALS: BP 136/60; TEMP 98.3
== END 2025-02-04 16:50 | disposition home or self-care (01) | DRG 555 ==
LOC: ERS 10:37 → 2NO 15:15 → OBSVTOIN 02-04 08:34
PROVIDERS: ADMIT Student in an Organized Health Care Education/Training Program; ATTEND Student in an Organized Health Care Education/Training Program
PROC: 3E03329 Introduction of Other Anti-infective into Peripheral Vein, Percutaneous Approach (ICD-10-PCS; principal; 2025-02-02)
PROC: 3E0234Z Introduction of Serum, Toxoid and Vaccine into Muscle, Percutaneous Approach (ICD-10-PCS; 2025-02-02)
PROC: 5A1D70Z Performance of Urinary Filtration, Intermittent, Less than 6 Hours Per Day (ICD-10-PCS; 2025-02-03)
PROC: 5A09357 Assistance with Respiratory Ventilation, Less than 24 Consecutive Hours, Continuous Positive Airway Pressure (ICD-10-PCS; 2025-02-04)
DX: M79.81 Nontraumatic hematoma of soft tissue (principal); N18.6 End stage renal disease; I13.2 Hypertensive heart and chronic kidney disease with heart failure and with stage 5 chronic kidney disease, or end stage renal disease; I50.22 Chronic systolic (congestive) heart failure; I25.10 Atherosclerotic heart disease of native coronary artery without angina pectoris; Z95.1 Presence of aortocoronary bypass graft; Z95.0 Presence of cardiac pacemaker; E11.22 Type 2 diabetes mellitus with diabetic chronic kidney disease; Z99.2 Dependence on renal dialysis; D63.1 Anemia in chronic kidney disease; Z98.890 Other specified postprocedural states; Z23 Encounter for immunization
CPT/HCPCS: 36415; 36416; 71045; 71260; 80053; 80069; 85025; 85610; 85730; 86704; 86706; 86803; 87340; 96365; 96375; 96376; 97139; G0378; J0692; J1815; J2270; J2405; Q9967